=== PATIENT | male | born 1980 | race Caucasian/White ===

== ENCOUNTER → 2018-06-24 10:08 | Outpatient (CLI) | payer OTHER, MEDICAID, SELFPAY ==
--- NOTE | 2018-06-24 10:28 | DI.RAD.S_ITS ---
PROCEDURE: XR SHOULDER RT MIN 2V INDICATIONS: Right shoulder pain after fall TECHNIQUE: 3 views of the shoulder were acquired. COMPARISON: [facility], , SHOULDER MINIMUM 2VIEW RIGHT, 02/06/2011, 21:13. FINDINGS: Bones: No fractures or dislocations. No suspicious bony lesions. Mild acromioclavicular joint degeneration. Visualized ribs appear intact. Soft tissues: No suspicious soft tissue calcifications. IMPRESSION: No fracture or dislocation. Dictated by: Joyce Clark M.D. on 06/24/2018 at 13:07 Approved by: Joyce Clark M.D. on 06/24/2018 at 13:10
--- NOTE | 2018-06-24 10:28 | DI.RAD.S_ITS ---
PROCEDURE: XR RIBS RT MIN 3V W CXR 1V INDICATIONS: Posterior right rib pain s/p fall TECHNIQUE: 2 views of the right ribs were acquired, along with a single view chest. COMPARISON: [facility], , CHEST 2 VIEW, 10/25/2008, 19:28. FINDINGS: Surgical changes and devices: Surgical clips are present in the right upper quadrant. Bones and chest wall: No fractures or dislocations. No suspicious bony lesions. Overlying soft tissues appear unremarkable. Lungs and pleura: No pleural effusions or pneumothorax. Lungs appear clear. Mediastinum: Mediastinal contours appear normal. Heart size is normal. IMPRESSION: No displaced right rib fractures. Dictated by: Joyce Clark M.D. on 06/24/2018 at 13:05 Approved by: Joyce Clark M.D. on 06/24/2018 at 13:07
[2018-06-24 13:38] LABS: Urine N gonorrhoeae NOT DETECTED
[2018-06-24 14:56] LABS: Urine Chlamydia NOT DETECTED
[2018-06-26 14:18] LABS: RPR Screen Nonreactive (Nonreactive)
[2018-06-26 17:10] LABS: HSV 1 IgM Screen Negative (Negative); HSV 2 IgM Screen Negative (Negative)
[2018-06-26 19:34] LABS: HIV Ag/Ab, 4th Gen Nonreactive (Nonreactive)
[2018-06-28 08:47] LABS: Hepatitis A Antibody IgM NONREACTIVE (NONREACTIVE); Hepatitis Acute Panel Interp 0.05 (NONREACTIVE); Hepatitis B Core Antibody IgM NONREACTIVE (NONREACTIVE); Hepatitis B Surface Antigen NONREACTIVE (NONREACTIVE); Hepatitis C Antibody NONREACTIVE
== END ==
PROVIDERS: PCP Family Medicine; Visit Provider Registered Nurse
DX: Z20.2 Contact with and (suspected) exposure to infections with a predominantly sexual mode of transmission (principal); M25.511 Pain in right shoulder; W19.XXXA Unspecified fall, initial encounter; R07.81 Pleurodynia
CPT/HCPCS: 36415; 71101; 73030; 80074; 86592; 86694; 86703; 87491; 87591

== ENCOUNTER 2018-08-26 14:36 | Emergency (ER) | payer OTHER, MEDICAID, SELFPAY ==
[2018-08-26 14:43] VITALS: BP 170/107; PULSE 91; RESP 15; TEMP 36.2; O2SAT 97; BMI 36.1
--- NOTE | 2018-08-26 14:50 | DI.RAD.S_ITS ---
PROCEDURE: XR FOREARM RT 2V INDICATIONS: pain after pinching arm between engine/firewall TECHNIQUE: 2 views of the forearm were acquired. COMPARISON: None. FINDINGS: Bones: No fractures or dislocations. No suspicious bony lesions. Soft tissues: No suspicious soft tissue calcifications or masses. IMPRESSION: No visualized acute fracture or dislocation. However, if clinical concern and/or pain persist, short interval imaging followup in 7-10 days is recommended, as occult injury cannot be definitively excluded. Dictated by: Evangelina Corbett M.D. on 08/26/2018 at 15:20 Approved by: Evangelina Corbett M.D. on 08/26/2018 at 15:22
--- NOTE | 2018-08-26 15:33 | ED_ITS ---
HPI - Extremity Injury (Upper) <BERONICA Wan-BC - Last Filed: 08/26/18 17:15> General Chief Complaint: Extremity Injury, Upper Stated Complaint: Right forearm injury from working on an engine Time Seen by Provider: 08/26/18 15:08 Source: patient Mode of arrival: ambulatory Limitations: no limitations History of Present Illness HPI narrative: The patient is a 38-year-old male who presents with a chief complaint of right arm pain and bruising. he is a current smoker and has history of back pain. he takes daily Percocet twice a day and is on a pain contract. He states this happened several days ago. He denies any numbness or tingling of his right hand. He has been taking [id number] medication and aggressively icing his forearm. He is concerned about a fracture. Related Data Home Medications Medication Instructions Recorded Confirmed oxycodone-acetaminophen [Percocet] 1 tab PO BID PRN 08/26/18 08/26/18 Previous Rx's Medication Instructions Recorded meloxicam 15 mg PO QDAY #30 tab 01/27/18 amitriptyline 25 mg tablet 25 mg PO BEDTIME #30 tab 03/25/18 bupropion HCl XL 450 mg 24 hr 450 mg PO DAILY #90 tab 05/05/18 tablet, extended release cyclobenzaprine 10 mg tablet 10 mg PO TID PRN #20 tab 06/30/18 Allergies Allergy/AdvReac Type Severity Reaction Status Date / Time neomycin Allergy Unknown Verified 08/26/18 14:43 polymyxin B Allergy Unknown Verified 08/26/18 14:43 pain contract Allergy Unknown Uncoded 07/05/18 09:19 Review of Systems <MARQUISE Wan - Last Filed: 08/26/18 17:15> Review of Systems GENERAL: Denies chills, fatigue, malaise, fever, sweats. HEENT: Denies sinus pain, ear pain, sore throat, difficulty swallowing, dizziness. RESPIRATORY: Denies dyspnea, cough, wheezing, hemoptysis, sputum. CARDIOVASCULAR: Denies chest pain, palpitations, orthopnea, edema, GASTROINTESTINAL: Denies nausea, vomiting, abdominal pain, diarrhea, constipation, melena. : Denies dysuria, frequency, incontinence, hematuria, urinary retention. MUSCULOSKELETAL: HPI SKIN: See HPI NEUROLOGIC: Denies weakness, headache, numbness, change in speech, confusion, seizures, incoordination. PSYCHIATRIC: No concerning psychosocial issues. 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) Surgical History History of varicose vein stripping (Resolved ~2015) History of vasectomy (~2009) Status post arthroscopy (~2012) Status post knee surgery (~2011) Status post knee surgery (~2009) Family History Father Diabetes mellitus Obesity Mother Age: 60 Obesity Social History Smoking Status: Former smoker alcohol intake: current (very rarely) substance use type: marijuana (on occasion) Family History Father Diabetes mellitus Obesity Mother Age: 60 Obesity Social History Smoking Status: Former smoker alcohol intake: current (very rarely) substance use type: marijuana (on occasion) Exam <BISI Wan - Last Filed: 08/26/18 17:15> Narrative Exam Narrative: GENERAL: This is a well-nourished, well-developed patient, sitting on stretcher in no acute distress HEAD: Atraumatic. Normocephalic. No temporal or scalp tenderness. EYES: Pupils equal round and reactive. Extraocular motions intact. No scleral icterus. No injection or drainage. ENT: Nose without bleeding, purulent drainage or septal hematoma. Throat without erythema, tonsillar hypertrophy or exudate. Uvula midline. Airway patent. NECK: Trachea midline. No JVD or lymphadenopathy. Supple, nontender, no meningeal signs. CARDIOVASCULAR: Regular rate and rhythm RESPIRATORY: no cough. No increased respiratory effort. EXTREMITIES: Pain to palpation of right forearm. Diffuse tenderness noted. Soft to palpation. Positive radial pulse right hand. Capillary refill less than 2 seconds all fingers right hand. Patient is able to pronate and supinate right forearm. Range of motion of wrist and intact. right hand is warm. BACK: Nontender without deformity or crepitance. No flank tenderness. NEURO: AOx3. SKIN: Diffuse ecchymosis noted anterior aspect of right forearm. No laceration or abrasions noted. Initial Vital Signs Initial Vital Signs: Vital Signs Temperature 97.2 F L 08/26/18 14:43 Pulse Rate 91 H 08/26/18 14:43 Respiratory Rate 15 08/26/18 14:43 Blood Pressure 170/107 H 08/26/18 14:43 Pulse Oximetry 97 08/26/18 14:43 <Luz Maria Nieves DO - Last Filed: 08/29/18 19:07> Initial Vital Signs Initial Vital Signs: Vital Signs Temperature 97.2 F L 08/26/18 14:43 Pulse Rate 91 H 08/26/18 14:43 Respiratory Rate 15 08/26/18 14:43 Blood Pressure 170/107 H 08/26/18 14:43 Pulse Oximetry 97 08/26/18 14:43 Course <BERONICA Wan-RODNEY - Last Filed: 08/26/18 17:15> Orders Ordered: Discontinued Medications Ketorolac Tromethamine (Toradol) 30 mg IM NOW ONE Stop: 08/26/18 15:34 Last Admin: 08/26/18 15:39 Dose: 30 mg Vital Signs - 8 hr 08/26/18 14:43 08/26/18 16:28 Temperature 97.2 F L Pulse Rate 91 H 81 Respiratory Rate 15 15 Blood Pressure 170/107 H Blood Pressure [Left Arm] 147/98 H Pulse Oximetry 97 98 <DO Armando Castro Last Filed: 08/29/18 19:07> Orders Ordered: Discontinued Medications Ketorolac Tromethamine (Toradol) 30 mg IM NOW ONE Stop: 08/26/18 15:34 Last Admin: 08/26/18 15:39 Dose: 30 mg Vital Signs - 8 hr 08/26/18 14:43 08/26/18 16:28 Temperature 97.2 F L Pulse Rate 91 H 81 Respiratory Rate 15 15 Blood Pressure 170/107 H Blood Pressure [Left Arm] 147/98 H Pulse Oximetry 97 98 MDM - Extremity Injury (Upper) <BERONICA Wan-BC - Last Filed: 08/26/18 17:15> Imaging Data arm xray : Radiologist's impression: [address] [address] XRay Report Signed Patient: Yovani Edmond LMR#: [id number] : 1980Acct:[id number] Age/Sex: 38 / MDate of Service: 08/26/18 Loc: ED Accession Number: [id number] Procedure: XR forearm RT 2V Ordering Provider: Luz Maria Nieves D.O. PROCEDURE: XR FOREARM RT 2V INDICATIONS: pain after pinching arm between engine/firewall TECHNIQUE: 2 views of the forearm were acquired. COMPARISON: None. FINDINGS: Bones: No fractures or dislocations. No suspicious bony lesions. Soft tissues: No suspicious soft tissue calcifications or masses. IMPRESSION: No visualized acute fracture or dislocation. However, if clinical concern and/or pain persist, short interval imaging followup in 7-10 days is recommended, as occult injury cannot be definitively excluded. Dictated by: Evangelina Corbett M.D. on 08/26/2018 at 15:20 Approved by: Evangelina Corbett M.D. on 08/26/2018 at 15:22 [facility] Narrative Medical decision making narrative: The patient is a 38-year-old male who presents with chief complaint of right arm pain. Had negative x-rays. He is neurovascularly intact. he does have range of motion. I discussed at length using rest ice compression elevation. He is given Toradol in the emergency department I gave him a prescription for 2 days of Toradol. Had a pancho discussion to not combine this with any other NSAIDs such as ibuprofen or Aleve. Patient states understanding. Discussed return precautions of chest pain, shortness of breath, decreased circulation or acute concerns. Patient has no questions or concerns upon discharge. Discharge Plan Departure Patient Disposition: Home Clinical Impression: Arm pain, right Contusion of arm, right Qualifiers: Encounter type: initial encounter Qualified Code(s): S40.021A - Contusion of right upper arm, initial encounter Discharge Date/Time: 08/26/18 16:45 Interventions: ED Discharge Assessment Last Done: 08/26/18 16:44 Instructions: DI for Contusion, DI for Arm Pain Activity Restrictions/Additional Instructions: Your x-ray shows no fracture. Please continue rest ice compression elevation as well as [id number] medications as needed and able. I gave her prescript ion for 2 days of Toradol. This is nonnarcotic. Do not take any other NSAIDs with it such as Mobic ibuprofen or Aleve. Follow up with primary care physician in the next few days. Please come back to the emergency department if you have any acute concerns such as lack of circulation to your hand, chest pain or concern of heart attack or stroke Prescriptions: No Action meloxicam 15 mg tablet 15 mg PO QDAY Qty: 30 RF: 5 bupropion HCl 450 mg tablet extended release 24 hr 450 mg PO DAILY Qty: 90 RF: 3 amitriptyline 25 mg tablet 25 mg PO BEDTIME Qty: 30 RF: 1 cyclobenzaprine 10 mg tablet 10 mg PO TID PRN (Reason: muscle spasm) Qty: 20 RF: 0 oxycodone-acetaminophen [Percocet] 7.5-325 mg tablet 1 tab PO BID PRN (Reason: pain) RF: 0 Referrals: Megan Flores DO [Primary Care Provider] - <Luz Maria Nieves DO - Last Filed: 08/29/18 19:07> Cosign ED Attending Pallaviature Attestation: I was immediately available in the department for consultation. Documentation has been reviewed. I agree with assessment and plan.
[2018-08-26] MEDS: KETOROLAC 60 MG/2 ML VIAL 30 MG IM (15:39)
[2018-08-26 16:28] VITALS: BP 147/98; PULSE 81; RESP 15; O2SAT 98
== END 2018-08-26 16:45 | disposition home or self-care (01) ==
PROVIDERS: Emergency Provider Nurse Practitioner Family; PCP Family Medicine
DX: S40.021A Contusion of right upper arm, initial encounter (principal)
CPT/HCPCS: 73090; 96372; 99282; 99283; J1885

== ENCOUNTER → 2019-03-21 19:11 | Outpatient (ROUT) | payer OTHER, MEDICAID, SELFPAY | PROVIDERS: PCP Family Medicine; Visit Provider Family Medicine | DX: Z02.83 Encounter for blood-alcohol and blood-drug test (principal) | CPT/HCPCS: 80307 ==

== ENCOUNTER → 2019-09-28 15:25 | Outpatient (CLI) | payer OTHER, MEDICAID, SELFPAY ==
[2019-09-28 17:00] LABS: Ur Creatinine Normal (Normal); Ur Specific Gravity Normal (Normal); Urine Tetrahydrocannabinol Positive (Negative); Urine pH Normal (Normal)
[2019-09-28 17:01] LABS: UR Morphine/Opiate cutoff 300 Positive (Negative); Urine Amphetamines Negative (Negative); Urine Barbiturates Negative (Negative); Urine Benzodiazepines Negative (Negative); Urine Cocaine Negative (Negative); Urine MDMA Negative (Negative); Urine Methadone Negative (Negative); Urine Methamphetamines Negative (Negative); Urine Oxycodone Positive (Negative); Urine Phencyclidine Negative (Negative); Urine Tricyclic Antidepressant Negative (Negative)
== END ==
PROVIDERS: PCP Family Medicine; Referring Provider Family Medicine; Visit Provider Family Medicine
DX: Z79.899 Other long term (current) drug therapy (principal); R82.5 Elevated urine levels of drugs, medicaments and biological substances
CPT/HCPCS: 80305; 80361

== ENCOUNTER → 2019-12-30 09:48 | Outpatient (CLI) | payer OTHER, MEDICAID, SELFPAY ==
[2019-12-30 11:34] LABS: Alanine Aminotransferase 29 IU/L (<50); Albumin 4.7 g/dL (3.5-5.0); Albumin Globulin Ratio 1.5 (1.0-2.8); Alkaline Phosphatase 64 U/L (38-126); Aspartate Aminotransferase 22 IU/L (17-59); BUN Creatinine Ratio 18.1 (6-22); Bilirubin Total 0.5 mg/dL (0.2-1.3); Blood Urea Nitrogen 15 mg/dL (9-20); Calcium 9.9 mg/dL (8.4-10.2); Carbon Dioxide 29 mmol/L (22-32); Chloride 101 mmol/L (98-107); Cholesterol 199 mg/dL (140-199); Estimated Glomerular Filt Rate > 60.0 mL/min (>60); Globulin 3.1 g/dL (1.7-4.1); Glucose 107 mg/dL (70-100); HDL Cholesterol 61 mg/dL (40-60); HEMOLYSIS < 15 (0-50); LDL Cholesterol Calculated 100 mg/dL (<100); Potassium 5.1 mmol/L (3.4-5.1); Sodium 138 mmol/L (137-145); Total Protein 7.8 g/dL (6.3-8.2); Triglycerides 190 mg/dL (35-150)
[2019-12-30 11:56] LABS: TSH w/ Reflex to FT4 1.73 uIU/mL (0.47-4.68)
== END ==
PROVIDERS: PCP Family Medicine; Referring Provider Family Medicine; Visit Provider Family Medicine
DX: E66.9 Obesity, unspecified (principal); F32.4 Major depressive disorder, single episode, in partial remission; F33.1 Major depressive disorder, recurrent, moderate
CPT/HCPCS: 36415; 80053; 80061; 84443

== ENCOUNTER → 2020-04-23 16:15 | Outpatient (CLI) | payer OTHER, MEDICAID, SELFPAY ==
[2020-04-23 17:07] LABS: UR Morphine/Opiate cutoff 300 Negative (Negative); Ur Creatinine Normal (Normal); Ur Specific Gravity Normal (Normal); Urine Amphetamines Negative (Negative); Urine Barbiturates Negative (Negative); Urine Benzodiazepines Negative (Negative); Urine Cocaine Negative (Negative); Urine MDMA Negative (Negative); Urine Methadone Negative (Negative); Urine Methamphetamines Negative (Negative); Urine Oxycodone Positive (Negative); Urine Phencyclidine Negative (Negative); Urine Tetrahydrocannabinol Positive (Negative); Urine Tricyclic Antidepressant Negative (Negative); Urine pH Normal (Normal)
== END ==
PROVIDERS: Family Provider Family Medicine; PCP Family Medicine; Referring Provider Family Medicine; Visit Provider Family Medicine
DX: M54.9 Dorsalgia, unspecified (principal); Z79.899 Other long term (current) drug therapy
CPT/HCPCS: 80305

== ENCOUNTER 2020-05-21 15:15 | Outpatient (RCR) | payer OTHER, MEDICAID, SELFPAY ==
[2020-04-25 10:34] VITALS: BP 170/105
--- NOTE | 2020-04-25 17:49 | PT.OIE ---
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) Tobacco use Past Surgical History (Last Reviewed 07/13/19 @ 10:16 by Jim Sesay DO) History of varicose vein stripping (~2015) History of vasectomy (~2009) Status post arthroscopy (~2012) Status post knee surgery (~2011) Status post knee surgery (~2009) Visit Care Team Role Provider Type Megan Flores DO Attending Provider Physician Family Provider Primary Care Provider Referring Provider Specialty: [facility] Practice Address: [address] [place] [address], [facility] [address], [place], [facility] Email: [email or web address] Therapy Initial Evaluation PT-OP-A Visit Information Start: 04/18/20 09:27 Freq: Status: Active Protocol: Document 04/25/20 10:34 AW (Rec: 04/25/20 11:21 AW [id number]) Out-Patient Physical Therapy Visit Information Visit Information Visit Type Initial Evaluation Visit Start Time 10:35 Visit Stop Time 11:15 Total Visit Minutes 40 Visit Number 1/ Number of HAZARDOUS MATERIALS HANDLER Visits 0 Evaluation Information Evaluation Date 04/25/20 PT-OP-B Current Condition Start: 04/18/20 09:27 Freq: Status: Active Protocol: Document 04/25/20 10:34 AW (Rec: 04/25/20 11:21 AW [id number]) Current Condition History of Current Condition Onset Date several years Current Complaints low back pain History of Current Condition Yovani reports low back pain which has been mostly stable for years. Some days are worse than others. There are days when I can't get out of bed and I might end up on the floor and not be able to get up. 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 He is on his feet for long periods of time . He works [id number] and sleeps during days. He is currently sleeping ~6-7 hours daily with trazadone and reports good sleep hygiene with a fairly regular sleep schedule. Since pt sleeps 0800 -1500, later afternoon appointments would work best for him. Pt reports back issues when he was younger but that they resolved. Current pain does not improve. Pt has low back pain (right more affected than left) and pain in right buttock and posterior thigh. Radiating pain does not usually extend past his knee. Prior Treatments and Tests - trazadone for sleep - MRI imaging a few years ago . Records unavailable - Pain management with Dr. Sesay - PT here 4 years ago Future Testing and Treatments Planned MRI in future depending on PT Prior Functional Status Baseline Function- ADL's Independent Baseline Function- Mobility Independent Baseline Function- Gait Could walk as far as needed without pain. 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 Current Functional Impairments (Reported) Functional Limitations- Mobility/Gait Walking around loop at [employer] ~4 times but must reduce speed on last laps. Functional Limitations- Work/School Pain during regular work. Difficulty climbing ladders. Difficulty lifting. Personal Factors Other Personal Factors That May Effect + positive experience with Therapy/Recovery past PT + positive attitude toward movement + low risk for catastrophization - works long hours in awkward positions/tight spaces PT-OP-C Subjective Start: 04/18/20 09:27 Freq: Status: Active Protocol: Document 04/25/20 10:34 AW (Rec: 04/25/20 17:47 AW [email or web address]) Patient Questionnaires Oswestry Low Back Index Oswestry Score 56 Oswestry Impairment 40 to 59% Impaired (Score 40- 59) Other Questionnaire Name and Score [facility] Back - 6/9 total; 2/5 subscore OP-PT Pain Assessment Pain Assessment Grid Paper Pain Assessment Grid Completed Yes Comments Pain Comments low back - 7/10; right posterior leg - 5/10 PT-OP-F Manual Assessment Start: 04/18/20 09:27 Freq: Status: Active Protocol: Document 04/25/20 10:34 AW (Rec: 04/25/20 17:47 AW [email or web address]) Manual Assessments Soft Tissue Assessment Soft Tissue Mobility Assessment increased density of lumbar paraspinals especially L3-S1 with right more affected than left Joint Mobility Assessment Joint Mobility Assessment lumbar P/A's limited especially L3-S1 PT-OP-G Mobility & Gait Start: 04/18/20 09:27 Freq: Status: Active Protocol: Document 04/25/20 10:34 AW (Rec: 04/25/20 17:47 AW [email or web address]) OP Gait Assessment Gait Gait Assistance Required: Independent Distance (Feet) 100 Assistive Devices Assistive Device None Orthotic/Prosthetic Devices or Brace: No Gait Deviations General Gait Pattern Decreased Stride Length, Decreased Feet Clearance,Wide Based Gait Factors Limiting Gait Function Factors Limiting Gait Function Decreased Strength,Limited Range of Motion,Pain Comments Gait Comments Pt ambulates with excessive turnout of bilateral feet, likely originating with externally rotated hips/ limited hip IR ROM. PT-OP-H Neuro Start: 04/18/20 09:27 Freq: Status: Active Protocol: Document 04/25/20 10:34 AW (Rec: 04/25/20 17:47 AW [email or web address]) Sensation Evaluation Gross Sensation Gross Sensation WNL Deep Tendon Reflex & Clonus Assessment Deep Tendon Reflex Bilateral Achilles Deep Tendon Reflex 1+ Diminished Bilateral Patellar Deep Tendon Reflex 1+ Diminished Vital Signs Blood Pressure Sitting Blood Pressure (90/60-120/80 mmHg) 170/105 H Blood Pressure Source Manual Cuff,Right Upper Extremity Comments Vital Signs Comments Pulse regular. Pt states I just chugged a Red Bull and I don't usually drink caffeine. PT-OP-J Posture/Palpation/Skin Start: 04/18/20 09:27 Freq: Status: Active Protocol: Document 04/25/20 10:34 AW (Rec: 04/25/20 17:47 AW [email or web address]) Posture Evaluation Position Standing Evaluation View Lateral Head/C-Spine Posture Forward Head L-Spine Posture Flattened,Decreased Lordosis Arm Posture (L) Internally Rotated,(R) Internally Rotated Pelvis Posture Posterior Tilted Weight Distribution Weight Shifted Left,Decreased Wt.Bear on (R) PT-OP-K Range of Motion Start: 04/18/20 09:27 Freq: Status: Active Protocol: Document 04/25/20 10:34 AW (Rec: 04/25/20 17:47 AW [email or web address]) Lumbar Spine Range of Motion Lumbar Spine Active Degrees Testing Position Standing Flexion 60 Extension 8 ROM Limitations Soft Tissue Tightness,Pain Comments Hinge noted at L1 with all lumbar movements. Right lateral flexion and left rotation are painful. Pt denies pain with lumbar flexion but has difficulty extending to neutral, is noted to use hands on thighs on initial attempt. Hip Goniometric Range of Motion Hip Active Hip ROM WFL No Hip ROM Limitations Comments Hip flexion limited by soft tissue/habitus. IR limited bilaterally. Knee Goniometric Range of Motion Knee Right Knee ROM WFL Yes Comments Bilateral knee ROM WNL PT-OP-L Special Tests Start: 04/18/20 09:27 Freq: Status: Active Protocol: Document 04/25/20 10:34 AW (Rec: 04/25/20 17:47 AW [email or web address]) Special Tests Lumbar Spine Special Tests Straight Leg Raise Test Results positive bilaterally Comments active SLR positive; improved symptoms with compression applied across pelv Manual Traction Comments relieveing Hip Special Tests Scour Test Test Results negative bilaterally Neural Special Tests- Lower Body Sciatic Nerve Tension Test Results slump positive RLE; mildly positive LLE PT-OP-M Strength Start: 04/18/20 09:27 Freq: Status: Active Protocol: Document 04/25/20 10:34 AW (Rec: 04/25/20 17:47 AW [email or web address]) Hip Strength Hip Manual Muscle Testing Left Flexion (L2) 4+ Good+ Extension (S1) 4- Good- Abduction 4- Good- External Rotation 4 Good Internal Rotation 4 Good Comments Right hip tests same as left Knee Strength Knee Manual Muscle Testing Left Flexion (S2) 4+ Good+ Extension (L3) 5 Normal Comments Right knee tests same as left Ankle/Foot Strength Ankle and Foot Manual Muscle Testing Left Dorsiflexion (L4) 5 Normal Plantarflexion (S1) 5 Normal Inversion 4+ Good+ Eversion (S1) 4+ Good+ Comments PF tested in standing. No unilateral deficit. PT-OP-Q Treatments Start: 04/18/20 09:27 Freq: Status: Active Protocol: Document 04/25/20 10:34 AW (Rec: 04/25/20 17:47 AW [email or web address]) Therapeutic Exercises Supine Exercises 1 Supine Exercise Name bent knee fall out Side bilateral Reps/Minutes 3 min Comments cued TrA draw down and focus on breathing PT-OP-T Assessment and Plan Start: 04/18/20 09:27 Freq: Status: Active Protocol: Document 04/25/20 10:34 AW (Rec: 04/25/20 17:47 AW [email or web address]) Physical Therapy Assessment Rehab Potential Rehabilitation Potential Good Evaluation Complexity Number of Personal Factors/Comorbidities 1-2 Number of Body Systems Impaired 1-2 Clinical Presentation at Evaluation Stable Impairments Impairments Activity Tolerance,Functional Activities,Functional Mobility ,Gait,Pain,Posture,ROM,Soft Tissue Mobility,Strength Goals 4 Impairment increased tone lumbar paraspinals Assisted Goal (LTG) Pt will demonstrate reduction in tone at lumbar paraspinals for improved activity tolerance LTG Duration 10 weeks - 07/04/20 3 Impairment ROM Short Term Goal (STG) Pt will improve lateral flexion from 3 above knee with pain to 1.5 above knee without pain bilaterally STG Duration 5 weeks - 05/30/20 2 Impairment pain impacting daily function Plasterer Rough Goal (LTG) Pt will score 35% or less on Modified Oswestry to demonstrate improvement in daily activities LTG Duration 10 weeks - 07/04/20 1 Impairment Pt has difficulty performing work duties Short Term Goal (STG) Pt will be able to tolerate standing 1 hour without increase in baseline pain. STG Duration 5 weeks - 05/30/20 Plasterer Rough Goal (LTG) Pt will be able to lift 25 pounds without increase in baseline pain LTG Duration 10 weeks - 07/04/20 Assessment Summary Assessment Yovani is a 39 yo man seen for evaluation in outpatient PT with complaints of low back pain and right posterior leg pain lasting several years. Pt denies trauma or injury, stating his pain worsened insidiously. Lumbar range of motion and hip strength are impaired. Decreased lumbar lordosis is affecting gait and pain irritability. 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 Pt will benefit from skilled physical therapy to address range of motion, posture, and strength deficits in order to improve pt's ability to participate in work and recreational activities with reduced pain and improved quality of life. Physical Therapy Plan Frequency and Duration Frequency of Treatment 2x/Week Duration of Treatment 10 weeks Plan of Care Start Date 04/25/20 Plan of Care End Date 07/04/20 Therapeutic Interventions Therapeutic Interventions Balance Training,Gait Training ,Home Exercise Program,Joint Mobilizations,Manual Therapy, Neuromuscular Re-education, Patient/Caregiver Education, Self-Care/Home Management,Soft Tissue Mobilization,Taping, Therapeutic Activities, Therapeutic Exercises Modalities Cold Pack/Ice Massage,Hot Packs Next Visit Focus/Plan Next Note Type Treatment Note Next Visit Plan assess response to TrA awareness and bent-knee fallout. progress TrA. initiate manual therapy for tone in lumbar paraspinals and lower lumbar mobility
--- NOTE | 2020-04-25 17:49 | PT.OPPOC ---
Physical, Occupational & Speech Therapy At [facility] Current Diagnoses Dorsalgia, unspecified (04/25/20) Abnormal posture (04/25/20) Visit Care Team Role Provider Type Megan Flores DO Attending Provider Physician Family Provider Primary Care Provider Referring Provider Specialty: Family Practice Address: [address] [place] [address], [address], [facility] Email: [email or web address] Plan Of Care PT-OP-T Assessment and Plan Start: 04/18/20 09:27 Freq: Status: Active Protocol: Document 04/25/20 10:34 AW (Rec: 04/25/20 17:47 AW [email or web address]) Physical Therapy Assessment Rehab Potential Rehabilitation Potential Good Evaluation Complexity Number of Personal Factors/Comorbidities 1-2 Number of Body Systems Impaired 1-2 Clinical Presentation at Evaluation Stable Impairments Impairments Activity Tolerance,Functional Activities,Functional Mobility ,Gait,Pain,Posture,ROM,Soft Tissue Mobility,Strength Goals 4 Impairment increased tone lumbar paraspinals Senior Care Goal (LTG) Pt will demonstrate reduction in tone at lumbar paraspinals for improved activity tolerance LTG Duration 10 weeks - 07/04/20 3 Impairment ROM Short Term Goal (STG) Pt will improve lateral flexion from 3 above knee with pain to 1.5 above knee without pain bilaterally STG Duration 5 weeks - 05/30/20 2 Impairment pain impacting daily function Brilliandeer Looper Goal (LTG) Pt will score 35% or less on Modified Oswestry to demonstrate improvement in daily activities LTG Duration 10 weeks - 07/04/20 1 Impairment Pt has difficulty performing work duties Short Term Goal (STG) Pt will be able to tolerate standing 1 hour without increase in baseline pain. STG Duration 5 weeks - 05/30/20 Brilliandeer Looper Goal (LTG) Pt will be able to lift 25 pounds without increase in baseline pain LTG Duration 10 weeks - 07/04/20 Assessment Summary Assessment Yovani is a 39 yo man seen for evaluation in outpatient PT with complaints of low back pain and right posterior leg pain lasting several years. Pt denies trauma or injury, stating his pain worsened insidiously. Lumbar range of motion and hip strength are impaired. Decreased lumbar lordosis is affecting gait and pain irritability. 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 Pt will benefit from skilled physical therapy to address range of motion, posture, and strength deficits in order to improve pt's ability to participate in work and recreational activities with reduced pain and improved quality of life. Physical Therapy Plan Frequency and Duration Frequency of Treatment 2x/Week Duration of Treatment 10 weeks Plan of Care Start Date 04/25/20 Plan of Care End Date 07/04/20 Therapeutic Interventions Therapeutic Interventions Balance Training,Gait Training ,Home Exercise Program,Joint Mobilizations,Manual Therapy, Neuromuscular Re-education, Patient/Caregiver Education, Self-Care/Home Management,Soft Tissue Mobilization,Taping, Therapeutic Activities, Therapeutic Exercises Modalities Cold Pack/Ice Massage,Hot Packs Next Visit Focus/Plan Next Note Type Treatment Note Next Visit Plan assess response to TrA awareness and bent-knee fallout. progress TrA. initiate manual therapy for tone in lumbar paraspinals and lower lumbar mobility Plan of Care Dates Plan of Care Start Date 04/25/20 Plan of Care End Date 07/04/20 Electronically Signed by: Julianne Li, PT 04/25/20 [id number] Please Sign and Return: I have reviewed this Plan of Care and certify that the skilled therapy services above are required to meet the patient?s needs. Physician Signature Date Printed Name and Credentials Clinical Instructor Signature Printed Name and Credentials
--- NOTE | 2020-04-27 15:00 | PT-OP ANOTE ---
Attempted to call pt for reminder of next appt and no show policy but voicemail stated it was a phone number for Yennifer _. Did not leave message.
--- NOTE | 2020-05-02 14:33 | PT-OP ANOTE ---
Pt cancelled same day due to high fever.
--- NOTE | 2020-05-14 16:36 | PT.OTN ---
Current Diagnoses Dorsalgia, unspecified (05/14/20) Abnormal posture (05/14/20) Physical Therapy Treatment Note PT-OP-A Visit Information Start: 04/18/20 09:27 Freq: Status: Active Protocol: Document 05/14/20 16:11 MA (Rec: 05/14/20 16:36 MA [email or web address]) Out-Patient Physical Therapy Visit Information Visit Information Visit Type Treatment Note Visit Start Time 14:30 Visit Stop Time 15:13 Total Visit Minutes 43 Visit Number 2/ Number of CATALYST OPERATOR GASOLINE Visits 1 PT-OP-B Current Condition Start: 04/18/20 09:27 Freq: Status: Active Protocol: Document 04/25/20 10:34 AW (Rec: 04/25/20 11:21 AW [email or web address]) Current Condition History of Current Condition Onset Date several years Current Complaints low back pain History of Current Condition Yovani reports low back pain which has been mostly stable for years. Some days are worse than others. There are days when I can't get out of bed and I might end up on the floor and not be able to get up. 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 He is on his feet for long periods of time . He works [id number] and sleeps during days. He is currently sleeping ~6-7 hours daily with trazadone and reports good sleep hygiene with a fairly regular sleep schedule. Since pt sleeps 0800 -1500, later afternoon appointments would work best for him. Pt reports back issues when he was younger but that they resolved. Current pain does not improve. Pt has low back pain (right more affected than left) and pain in right buttock and posterior thigh. Radiating pain does not usually extend past his knee. Prior Treatments and Tests - trazadone for sleep - MRI imaging a few years ago . Records unavailable - Pain management with Dr. Sesay - PT here 4 years ago Future Testing and Treatments Planned MRI in future depending on PT Prior Functional Status Baseline Function- ADL's Independent Baseline Function- Mobility Independent Baseline Function- Gait Could walk as far as needed without pain. 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 Current Functional Impairments (Reported) Functional Limitations- Mobility/Gait Walking around loop at [employer] ~4 times but must reduce speed on last laps. Functional Limitations- Work/School Pain during regular work. Difficulty climbing ladders. Difficulty lifting. Personal Factors Other Personal Factors That May Effect + positive experience with Therapy/Recovery past PT + positive attitude toward movement + low risk for catastrophization - works long hours in awkward positions/tight spaces PT-OP-C Subjective Start: 04/18/20 09:27 Freq: Status: Active Protocol: Document 05/14/20 16:11 MA (Rec: 05/14/20 16:36 MA [email or web address]) OP-PT Subjective Patient Comments Patient Comments Pt has been doing his knee fall out exercise with no increase in pain. He would like to find more ab exercises he can do that don't hurt his back and are not just sit ups . PT-OP-F Manual Assessment Start: 04/18/20 09:27 Freq: Status: Active Protocol: Document 04/25/20 10:34 AW (Rec: 04/25/20 17:47 AW [email or web address]) Manual Assessments Soft Tissue Assessment Soft Tissue Mobility Assessment increased density of lumbar paraspinals especially L3-S1 with right more affected than left Joint Mobility Assessment Joint Mobility Assessment lumbar P/A's limited especially L3-S1 PT-OP-G Mobility & Gait Start: 04/18/20 09:27 Freq: Status: Active Protocol: Document 04/25/20 10:34 AW (Rec: 04/25/20 17:47 AW [email or web address]) OP Gait Assessment Gait Gait Assistance Required: Independent Distance (Feet) 100 Assistive Devices Assistive Device None Orthotic/Prosthetic Devices or Brace: No Gait Deviations General Gait Pattern Decreased Stride Length, Decreased Feet Clearance,Wide Based Gait Factors Limiting Gait Function Factors Limiting Gait Function Decreased Strength,Limited Range of Motion,Pain Comments Gait Comments Pt ambulates with excessive turnout of bilateral feet, likely originating with externally rotated hips/ limited hip IR ROM. PT-OP-H Neuro Start: 04/18/20 09:27 Freq: Status: Active Protocol: Document 04/25/20 10:34 AW (Rec: 04/25/20 17:47 AW [email or web address]) Sensation Evaluation Gross Sensation Gross Sensation WNL Deep Tendon Reflex & Clonus Assessment Deep Tendon Reflex Bilateral Achilles Deep Tendon Reflex 1+ Diminished Bilateral Patellar Deep Tendon Reflex 1+ Diminished Vital Signs Blood Pressure Sitting Blood Pressure (90/60-120/80 mmHg) 170/105 H Blood Pressure Source Manual Cuff,Right Upper Extremity Comments Vital Signs Comments Pulse regular. Pt states I just chugged a Red Bull and I don't usually drink caffeine. PT-OP-J Posture/Palpation/Skin Start: 04/18/20 09:27 Freq: Status: Active Protocol: Document 04/25/20 10:34 AW (Rec: 04/25/20 17:47 AW [email or web address]) Posture Evaluation Position Standing Evaluation View Lateral Head/C-Spine Posture Forward Head L-Spine Posture Flattened,Decreased Lordosis Arm Posture (L) Internally Rotated,(R) Internally Rotated Pelvis Posture Posterior Tilted Weight Distribution Weight Shifted Left,Decreased Wt.Bear on (R) PT-OP-K Range of Motion Start: 04/18/20 09:27 Freq: Status: Active Protocol: Document 04/25/20 10:34 AW (Rec: 04/25/20 17:47 AW [email or web address]) Lumbar Spine Range of Motion Lumbar Spine Active Degrees Testing Position Standing Flexion 60 Extension 8 ROM Limitations Soft Tissue Tightness,Pain Comments Hinge noted at L1 with all lumbar movements. Right lateral flexion and left rotation are painful. Pt denies pain with lumbar flexion but has difficulty extending to neutral, is noted to use hands on thighs on initial attempt. Hip Goniometric Range of Motion Hip Active Hip ROM WFL No Hip ROM Limitations Comments Hip flexion limited by soft tissue/habitus. IR limited bilaterally. Knee Goniometric Range of Motion Knee Right Knee ROM WFL Yes Comments Bilateral knee ROM WNL PT-OP-L Special Tests Start: 04/18/20 09:27 Freq: Status: Active Protocol: Document 04/25/20 10:34 AW (Rec: 04/25/20 17:47 AW [email or web address]) Special Tests Lumbar Spine Special Tests Straight Leg Raise Test Results positive bilaterally Comments active SLR positive; improved symptoms with compression applied across pelv Manual Traction Comments relieveing Hip Special Tests Scour Test Test Results negative bilaterally Neural Special Tests- Lower Body Sciatic Nerve Tension Test Results slump positive RLE; mildly positive LLE PT-OP-M Strength Start: 04/18/20 09:27 Freq: Status: Active Protocol: Document 04/25/20 10:34 AW (Rec: 12/16/20 17:47 AW [email or web address]) Hip Strength Hip Manual Muscle Testing Left Flexion (L2) 4+ Good+ Extension (S1) 4- Good- Abduction 4- Good- External Rotation 4 Good Internal Rotation 4 Good Comments Right hip tests same as left Knee Strength Knee Manual Muscle Testing Left Flexion (S2) 4+ Good+ Extension (L3) 5 Normal Comments Right knee tests same as left Ankle/Foot Strength Ankle and Foot Manual Muscle Testing Left Dorsiflexion (L4) 5 Normal Plantarflexion (S1) 5 Normal Inversion 4+ Good+ Eversion (S1) 4+ Good+ Comments PF tested in standing. No unilateral deficit. PT-OP-Q Treatments Start: 04/18/20 09:27 Freq: Status: Active Protocol: Document 05/14/20 16:11 MA (Rec: 05/14/20 16:36 MA [email or web address]) Therapeutic Exercises Supine Exercises LTR Supine Exercise Name cues to TrA contraction to bring knees back to neutral Side bilateral Reps/Minutes 10x holding for 10 sec marches Supine Exercise Name Cues for TrA contraction and breath control Side bilateral Reps/Minutes 6x Comments d/c due to LBP 1 Supine Exercise Name bent knee fall out Side bilateral Reps/Minutes 3 min Comments cued TrA draw down and focus on breathing Other Exercises 4-point kneeling Other Exercise Name with leg extension only; added with arm ext only to HEP Reps/Minutes 10x Comments manual and verbal cues for keeping pelvis level Plank Comments on forearms- d/c due to LBP Verna Pose Other Exercise Name Child's pose stretch Reps/Minutes 60 sec Manual Therapy Treatment Soft Tissue Mobilization paraspinals Body Location jemal paraspinals Mobilization Type Myofascial Release,Strumming, Sustained Pressure,Trigger Point Release Intensity/Depth Moderate Body Position Prone Manual Techniques Iliac Crest Scour Body Location Jemal Body Position Prone Self-Care/Home Management Treatment Education Patient Education Home Exercise Program Other Education Added LTR to HEP focusing on using the core to bring knees back to neutral to avoid LBP. Pt has been using a tennis ball at home for self-STM and will continue using it as needed. Asked pt to try 4- point kneeling exercise with single arm extension instead of leg ext at home with option to add light weight for more of a challenge. PT-OP-T Assessment and Plan Start: 04/18/20 09:27 Freq: Status: Active Protocol: Document 01/04/21 16:11 MA (Rec: 05/14/20 16:36 MA [email or web address]) Physical Therapy Assessment Goals 4 Impairment increased tone lumbar paraspinals Allocations Clerk Goal (LTG) Pt will demonstrate reduction in tone at lumbar paraspinals for improved activity tolerance LTG Duration 10 weeks - 07/04/20 3 Impairment ROM Short Term Goal (STG) Pt will improve lateral flexion from 3 above knee with pain to 1.5 above knee without pain bilaterally STG Duration 5 weeks - 05/30/20 2 Impairment pain impacting daily function Allocations Clerk Goal (LTG) Pt will score 35% or less on Modified Oswestry to demonstrate improvement in daily activities LTG Duration 10 weeks - 07/04/20 1 Impairment Pt has difficulty performing work duties Short Term Goal (STG) Pt will be able to tolerate standing 1 hour without increase in baseline pain. STG Duration 5 weeks - 05/30/20 Allocations Clerk Goal (LTG) Pt will be able to lift 25 pounds without increase in baseline pain LTG Duration 10 weeks - 07/04/20 Assessment Summary Assessment Yovani has had no pain with knee fall out exercise. Worked on lower trunk rotation for LB stretch with cues for TrA contraction when bringing knees back to neutral. Pt unable to tolerate supine marches or plank without LBP. Worked on 4-point kneeling exercise with SL extension. Pt able to complete 6 with cues for keeping pelvis level and abdominals contracted before losing contraction and feeling moderate LBP. Asked pt to try 4-point kneeling with single arm extension at home and report back if he has any increase in back pain. Told pt he can add a 2 pound weight if he has no back pain and feels it is too easy. Physical Therapy Plan Frequency and Duration Frequency of Treatment 2x/Week Duration of Treatment 10 weeks Plan of Care Start Date 04/25/20 Plan of Care End Date 07/04/20 Therapeutic Interventions Therapeutic Interventions Balance Training,Gait Training ,Home Exercise Program,Joint Mobilizations,Manual Therapy, Neuromuscular Re-education, Patient/Caregiver Education, Self-Care/Home Management,Soft Tissue Mobilization,Taping, Therapeutic Activities, Therapeutic Exercises Modalities Cold Pack/Ice Massage,Hot Packs Next Visit Focus/Plan Next Note Type Treatment Note Next Visit Plan Assess how single arm reach during 4-point kneeling and LTR exercises went at home. Add child's pose stretch to HEP. Continue STM to jemal paraspinals.
--- NOTE | 2020-05-16 15:10 | PT-OP ANOTE ---
Pt called and canceled one hour prior to appointment. If cancels or no-shows one more appointment, will discharge and cancel all future appointments per attendance policy/patient contract.
--- NOTE | 2020-05-21 16:00 | PT.OTN ---
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 Some days are worse than others. There are days when I can't get out of bed and I might end up on the floor and not be able to get up. 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 He is on his feet for long periods of time . He works [id number] and sleeps during days. He is currently sleeping ~6-7 hours daily with trazadone and reports good sleep hygiene with a fairly regular sleep schedule. Since pt sleeps 0800 -1500, later afternoon appointments would work best for him. Pt reports back issues when he was younger but that they resolved. Current pain does not improve. Pt has low back pain (right more affected than left) and pain in right buttock and posterior thigh. Radiating pain does not usually extend past his knee. Prior Treatments and Tests - trazadone for sleep - MRI imaging a few years ago . Records unavailable - Pain management with Dr. Sesay - PT here 4 years ago Future Testing and Treatments Planned MRI in future depending on PT Prior Functional Status Baseline Function- ADL's Independent Baseline Function- Mobility Independent Baseline Function- Gait Could walk as far as needed without pain. 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 Current Functional Impairments (Reported) Functional Limitations- Mobility/Gait Walking around loop at [employer] ~4 times but must reduce speed on last laps. Functional Limitations- Work/School Pain during regular work. Difficulty climbing ladders. Difficulty lifting. Personal Factors Other Personal Factors That May Effect + positive experience with Therapy/Recovery past PT + positive attitude toward movement + low risk for catastrophization - works long hours in awkward positions/tight spaces PT-OP-C Subjective Start: 04/18/20 09:27 Freq: Status: Active Protocol: Document 05/21/20 15:18 MA (Rec: 05/21/20 16:12 MA [id number]) OP-PT Subjective Patient Comments Patient Comments Pt had to work twenty hours today since no one showed up for the next shift. He has not slept and his back is aggrivated today. He also started the keto diet and is hoping losing weight will help with his back pain. PT-OP-F Manual Assessment Start: 04/18/20 09:27 Freq: Status: Active Protocol: Document 04/25/20 10:34 AW (Rec: 04/25/20 17:47 AW [email or web address]) Manual Assessments Soft Tissue Assessment Soft Tissue Mobility Assessment increased density of lumbar paraspinals especially L3-S1 with right more affected than left Joint Mobility Assessment Joint Mobility Assessment lumbar P/A's limited especially L3-S1 PT-OP-G Mobility & Gait Start: 04/18/20 09:27 Freq: Status: Active Protocol: Document 04/25/20 10:34 AW (Rec: 04/25/20 17:47 AW [email or web address]) OP Gait Assessment Gait Gait Assistance Required: Independent Distance (Feet) 100 Assistive Devices Assistive Device None Orthotic/Prosthetic Devices or Brace: No Gait Deviations General Gait Pattern Decreased Stride Length, Decreased Feet Clearance,Wide Based Gait Factors Limiting Gait Function Factors Limiting Gait Function Decreased Strength,Limited Range of Motion,Pain Comments Gait Comments Pt ambulates with excessive turnout of bilateral feet, likely originating with externally rotated hips/ limited hip IR ROM. PT-OP-H Neuro Start: 04/18/20 09:27 Freq: Status: Active Protocol: Document 04/25/20 10:34 AW (Rec: 04/25/20 17:47 AW [email or web address]) Sensation Evaluation Gross Sensation Gross Sensation WNL Deep Tendon Reflex & Clonus Assessment Deep Tendon Reflex Bilateral Achilles Deep Tendon Reflex 1+ Diminished Bilateral Patellar Deep Tendon Reflex 1+ Diminished Vital Signs Blood Pressure Sitting Blood Pressure (90/60-120/80 mmHg) 170/105 H Blood Pressure Source Manual Cuff,Right Upper Extremity Comments Vital Signs Comments Pulse regular. Pt states I just chugged a Red Bull and I don't usually drink caffeine. PT-OP-J Posture/Palpation/Skin Start: 04/18/20 09:27 Freq: Status: Active Protocol: Document 04/25/20 10:34 AW (Rec: 04/25/20 17:47 AW [email or web address]) Posture Evaluation Position Standing Evaluation View Lateral Head/C-Spine Posture Forward Head L-Spine Posture Flattened,Decreased Lordosis Arm Posture (L) Internally Rotated,(R) Internally Rotated Pelvis Posture Posterior Tilted Weight Distribution Weight Shifted Left,Decreased Wt.Bear on (R) PT-OP-K Range of Motion Start: 04/18/20 09:27 Freq: Status: Active Protocol: Document 04/25/20 10:34 AW (Rec: 04/25/20 17:47 AW [email or web address]) Lumbar Spine Range of Motion Lumbar Spine Active Degrees Testing Position Standing Flexion 60 Extension 8 ROM Limitations Soft Tissue Tightness,Pain Comments Hinge noted at L1 with all lumbar movements. Right lateral flexion and left rotation are painful. Pt denies pain with lumbar flexion but has difficulty extending to neutral, is noted to use hands on thighs on initial attempt. Hip Goniometric Range of Motion Hip Active Hip ROM WFL No Hip ROM Limitations Comments Hip flexion limited by soft tissue/habitus. IR limited bilaterally. Knee Goniometric Range of Motion Knee Right Knee ROM WFL Yes Comments Bilateral knee ROM WNL PT-OP-L Special Tests Start: 04/18/20 09:27 Freq: Status: Active Protocol: Document 04/25/20 10:34 AW (Rec: 04/25/20 17:47 AW [email or web address]) Special Tests Lumbar Spine Special Tests Straight Leg Raise Test Results positive bilaterally Comments active SLR positive; improved symptoms with compression applied across pelv Manual Traction Comments relieveing Hip Special Tests Scour Test Test Results negative bilaterally Neural Special Tests- Lower Body Sciatic Nerve Tension Test Results slump positive RLE; mildly positive LLE PT-OP-M Strength Start: 04/18/20 09:27 Freq: Status: Active Protocol: Document 04/25/20 10:34 AW (Rec: 04/25/20 17:47 AW [email or web address]) Hip Strength Hip Manual Muscle Testing Left Flexion (L2) 4+ Good+ Extension (S1) 4- Good- Abduction 4- Good- External Rotation 4 Good Internal Rotation 4 Good Comments Right hip tests same as left Knee Strength Knee Manual Muscle Testing Left Flexion (S2) 4+ Good+ Extension (L3) 5 Normal Comments Right knee tests same as left Ankle/Foot Strength Ankle and Foot Manual Muscle Testing Left Dorsiflexion (L4) 5 Normal Plantarflexion (S1) 5 Normal Inversion 4+ Good+ Eversion (S1) 4+ Good+ Comments PF tested in standing. No unilateral deficit. PT-OP-Q Treatments Start: 04/18/20 09:27 Freq: Status: Active Protocol: Document 05/21/20 15:18 MA (Rec: 05/21/20 16:12 MA [id number]) Therapeutic Exercises Supine Exercises Stretch Supine Exercise Name Single knee to chest Side bilateral Reps/Minutes 4x30 sec LTR Supine Exercise Name cues to TrA contraction to bring knees back to neutral Side bilateral Reps/Minutes 10x holding for 10 sec 1 Supine Exercise Name bent knee fall out Side bilateral Reps/Minutes 3 min Comments cued TrA draw down and focus on breathing Other Exercises 4-point kneeling Other Exercise Name Arm extension only focusing on core stability Reps/Minutes 10x Manual Therapy Treatment Soft Tissue Mobilization paraspinals Body Location jemal paraspinals Mobilization Type Myofascial Release,Strumming, Sustained Pressure,Trigger Point Release Intensity/Depth Moderate Body Position Prone Manual Traction Traction Comments IR of LE for low back Manual Techniques Iliac Crest Scour Body Location Jemal Body Position Prone PT-OP-T Assessment and Plan Start: 04/18/20 09:27 Freq: Status: Active Protocol: Document 05/21/20 15:18 MA (Rec: 05/21/20 16:12 MA [id number]) Physical Therapy Assessment Goals 4 Impairment increased tone lumbar paraspinals Usp Goal (LTG) Pt will demonstrate reduction in tone at lumbar paraspinals for improved activity tolerance LTG Duration 10 weeks - 07/04/20 3 Impairment ROM Short Term Goal (STG) Pt will improve lateral flexion from 3 above knee with pain to 1.5 above knee without pain bilaterally STG Duration 5 weeks - 05/30/20 2 Impairment pain impacting daily function Extractor Operator Goal (LTG) Pt will score 35% or less on Modified Oswestry to demonstrate improvement in daily activities LTG Duration 10 weeks - 07/04/20 1 Impairment Pt has difficulty performing work duties Short Term Goal (STG) Pt will be able to tolerate standing 1 hour without increase in baseline pain. STG Duration 5 weeks - 05/30/20 Usp Goal (LTG) Pt will be able to lift 25 pounds without increase in baseline pain LTG Duration 10 weeks - 07/04/20 Assessment Summary Assessment Pt arrived to clinic after working a twenty-hour shift. He reports his 4-point kneeling with arm ext was easy so he added the opposite leg extension, stating it hurt but I pushed through. Discussed not pushing through back pain and focusing on tightening core to help decrease LBP. LTR is usually a comfortable stretch, but today pt states it is too much. Was able to perform bent knee fall out without increase in pain. Focused on STM to bilateral paraspinals R >L. Due to increased pain after long work day, pt was unable to tolerate much during treatment session. He has the next 48 hours off of work and hopes on Thursday he will be able to do more. Physical Therapy Plan Frequency and Duration Frequency of Treatment 2x/Week Duration of Treatment 10 weeks Plan of Care Start Date 04/25/20 Plan of Care End Date 07/04/20 Therapeutic Interventions Therapeutic Interventions Balance Training,Gait Training ,Home Exercise Program,Joint Mobilizations,Manual Therapy, Neuromuscular Re-education, Patient/Caregiver Education, Self-Care/Home Management,Soft Tissue Mobilization,Taping, Therapeutic Activities, Therapeutic Exercises Modalities Cold Pack/Ice Massage,Hot Packs Next Visit Focus/Plan Next Note Type Treatment Note Next Visit Plan If appropriate add IFC at end of next treatment session. Continue bent knee fall out, LTR, child's pose stretch and 4-point kneeling core work as tolerated.
--- NOTE | 2020-05-24 14:33 | PT-OP ANOTE ---
Pt DNS for am appt, MANAGER MOLECULAR called and pt forgot but agreed to taking 1430 appt. Pt called and cancelled just before 1430 appt and cancelled due to being called into work.
--- NOTE | 2020-05-25 09:17 | PT-OP ANOTE ---
Pt did not show for today's appt, called and left a message that he is discharged at this time and if feels wants to continue PT will need to call his physician for a new referral with keeping in mind that needs to attend appts for to allow benefits. 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
--- NOTE | 2020-05-30 09:15 | PT.OPDS ---
Current Diagnoses Dorsalgia, unspecified (05/21/20) Abnormal posture (05/21/20) Visit Care Team Role Provider Type Megan Flores DO Attending Provider Physician Family Provider Primary Care Provider Referring Provider Specialty: Family Practice Address: [address] [place] [address], [address], [place], [address] Email: [email or web address] Visit Number Visit Number 07/17 Discharge Summary PT-OP-B Current Condition Start: 04/18/20 09:27 Freq: Status: Active Protocol: Document 04/25/20 10:34 AW (Rec: 04/25/20 11:21 AW [id number]) Current Condition History of Current Condition Onset Date several years Current Complaints low back pain History of Current Condition Yovani reports low back pain which has been mostly stable for years. Some days are worse than others. There are days when I can't get out of bed and I might end up on the floor and not be able to get up. 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 He is on his feet for long periods of time . He works [id number] and sleeps during days. He is currently sleeping ~6-7 hours daily with trazadone and reports good sleep hygiene with a fairly regular sleep schedule. Since pt sleeps 0800 -1500, later afternoon appointments would work best for him. Pt reports back issues when he was younger but that they resolved. Current pain does not improve. Pt has low back pain (right more affected than left) and pain in right buttock and posterior thigh. Radiating pain does not usually extend past his knee. Prior Treatments and Tests - trazadone for sleep - MRI imaging a few years ago . Records unavailable - Pain management with Dr. Sesay - PT here 4 years ago Future Testing and Treatments Planned MRI in future depending on PT Prior Functional Status Baseline Function- ADL's Independent Baseline Function- Mobility Independent Baseline Function- Gait Could walk as far as needed without pain. 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 Current Functional Impairments (Reported) Functional Limitations- Mobility/Gait Walking around loop at [employer] ~4 times but must reduce speed on last laps. Functional Limitations- Work/School Pain during regular work. Difficulty climbing ladders. Difficulty lifting. Personal Factors Other Personal Factors That May Effect + positive experience with Therapy/Recovery past PT + positive attitude toward movement + low risk for catastrophization - works long hours in awkward positions/tight spaces PT-OP-C Subjective Start: 04/18/20 09:27 Freq: Status: Active Protocol: Document 05/21/20 15:18 MA (Rec: 05/21/20 16:12 MA [id number]) OP-PT Subjective Patient Comments Patient Comments Pt had to work twenty hours today since no one showed up for the next shift. He has not slept and his back is aggrivated today. He also started the keto diet and is hoping losing weight will help with his back pain. PT-OP-F Manual Assessment Start: 04/18/20 09:27 Freq: Status: Active Protocol: Document 04/25/20 10:34 AW (Rec: 04/25/20 17:47 AW [email or web address]) Manual Assessments Soft Tissue Assessment Soft Tissue Mobility Assessment increased density of lumbar paraspinals especially L3-S1 with right more affected than left Joint Mobility Assessment Joint Mobility Assessment lumbar P/A's limited especially L3-S1 PT-OP-G Mobility & Gait Start: 04/18/20 09:27 Freq: Status: Active Protocol: Document 04/25/20 10:34 AW (Rec: 04/25/20 17:47 AW [email or web address]) OP Gait Assessment Gait Gait Assistance Required: Independent Distance (Feet) 100 Assistive Devices Assistive Device None Orthotic/Prosthetic Devices or Brace: No Gait Deviations General Gait Pattern Decreased Stride Length, Decreased Feet Clearance,Wide Based Gait Factors Limiting Gait Function Factors Limiting Gait Function Decreased Strength,Limited Range of Motion,Pain Comments Gait Comments Pt ambulates with excessive turnout of bilateral feet, likely originating with externally rotated hips/ limited hip IR ROM. PT-OP-H Neuro Start: 04/18/20 09:27 Freq: Status: Active Protocol: Document 04/25/20 10:34 AW (Rec: 04/25/20 17:47 AW [email or web address]) Sensation Evaluation Gross Sensation Gross Sensation WNL Deep Tendon Reflex & Clonus Assessment Deep Tendon Reflex Bilateral Achilles Deep Tendon Reflex 1+ Diminished Bilateral Patellar Deep Tendon Reflex 1+ Diminished Vital Signs Blood Pressure Sitting Blood Pressure (90/60-120/80 mmHg) 170/105 H Blood Pressure Source Manual Cuff,Right Upper Extremity Comments Vital Signs Comments Pulse regular. Pt states I just chugged a Red Bull and I don't usually drink caffeine. PT-OP-J Posture/Palpation/Skin Start: 04/18/20 09:27 Freq: Status: Active Protocol: Document 04/25/20 10:34 AW (Rec: 04/25/20 17:47 AW [email or web address]) Posture Evaluation Position Standing Evaluation View Lateral Head/C-Spine Posture Forward Head L-Spine Posture Flattened,Decreased Lordosis Arm Posture (L) Internally Rotated,(R) Internally Rotated Pelvis Posture Posterior Tilted Weight Distribution Weight Shifted Left,Decreased Wt.Bear on (R) PT-OP-K Range of Motion Start: 04/18/20 09:27 Freq: Status: Active Protocol: Document 04/25/20 10:34 AW (Rec: 04/25/20 17:47 AW [email or web address]) Lumbar Spine Range of Motion Lumbar Spine Active Degrees Testing Position Standing Flexion 60 Extension 8 ROM Limitations Soft Tissue Tightness,Pain Comments Hinge noted at L1 with all lumbar movements. Right lateral flexion and left rotation are painful. Pt denies pain with lumbar flexion but has difficulty extending to neutral, is noted to use hands on thighs on initial attempt. Hip Goniometric Range of Motion Hip Active Hip ROM WFL No Hip ROM Limitations Comments Hip flexion limited by soft tissue/habitus. IR limited bilaterally. Knee Goniometric Range of Motion Knee Right Knee ROM WFL Yes Comments Bilateral knee ROM WNL PT-OP-L Special Tests Start: 04/18/20 09:27 Freq: Status: Active Protocol: Document 04/25/20 10:34 AW (Rec: 04/25/20 17:47 AW [email or web address]) Special Tests Lumbar Spine Special Tests Straight Leg Raise Test Results positive bilaterally Comments active SLR positive; improved symptoms with compression applied across pelv Manual Traction Comments relieveing Hip Special Tests Scour Test Test Results negative bilaterally Neural Special Tests- Lower Body Sciatic Nerve Tension Test Results slump positive RLE; mildly positive LLE PT-OP-M Strength Start: 04/18/20 09:27 Freq: Status: Active Protocol: Document 04/25/20 10:34 AW (Rec: 04/25/20 17:47 AW [email or web address]) Hip Strength Hip Manual Muscle Testing Left Flexion (L2) 4+ Good+ Extension (S1) 4- Good- Abduction 4- Good- External Rotation 4 Good Internal Rotation 4 Good Comments Right hip tests same as left Knee Strength Knee Manual Muscle Testing Left Flexion (S2) 4+ Good+ Extension (L3) 5 Normal Comments Right knee tests same as left Ankle/Foot Strength Ankle and Foot Manual Muscle Testing Left Dorsiflexion (L4) 5 Normal Plantarflexion (S1) 5 Normal Inversion 4+ Good+ Eversion (S1) 4+ Good+ Comments PF tested in standing. No unilateral deficit. PT-OP-T Assessment and Plan Start: 04/18/20 09:27 Freq: Status: Active Protocol: Document 05/30/20 09:12 AW (Rec: 05/30/20 09:15 AW [email or web address]) Physical Therapy Assessment Rehab Potential Rehabilitation Potential Good Evaluation Complexity Number of Personal Factors/Comorbidities 1-2 Number of Body Systems Impaired 1-2 Clinical Presentation at Evaluation Stable Impairments Impairments Activity Tolerance,Functional Activities,Functional Mobility ,Gait,Pain,Posture,ROM,Soft Tissue Mobility,Strength Goals 4 Impairment increased tone lumbar paraspinals [facility] Goal (LTG) Pt will demonstrate reduction in tone at lumbar paraspinals for improved activity tolerance LTG Duration 10 weeks - 07/04/20 3 Impairment ROM Short Term Goal (STG) Pt will improve lateral flexion from 3 above knee with pain to 1.5 above knee without pain bilaterally STG Duration 5 weeks - 05/30/20 2 Impairment pain impacting daily function Chcf Goal (LTG) Pt will score 35% or less on Modified Oswestry to demonstrate improvement in daily activities LTG Duration 10 weeks - 07/04/20 1 Impairment Pt has difficulty performing work duties Short Term Goal (STG) Pt will be able to tolerate standing 1 hour without increase in baseline pain. STG Duration 5 weeks - 05/30/20 [facility]cf Goal (LTG) Pt will be able to lift 25 pounds without increase in baseline pain LTG Duration 10 weeks - 07/04/20 Physical Therapy Plan Frequency and Duration Frequency of Treatment 2x/Week Duration of Treatment 10 weeks Plan of Care Start Date 04/25/20 Plan of Care End Date 07/04/20 Therapeutic Interventions Therapeutic Interventions Balance Training,Gait Training ,Home Exercise Program,Joint Mobilizations,Manual Therapy, Neuromuscular Re-education, Patient/Caregiver Education, Self-Care/Home Management,Soft Tissue Mobilization,Taping, Therapeutic Activities, Therapeutic Exercises Modalities Cold Pack/Ice Massage,Hot Packs Discharge Physical Therapy Discharge Reasons No Longer Attending PT Discharge Comments Pt missed, rescheduled, and no -showed several appointments. EDGERMAN notified him by phone that remaining appointments would be canceled and he would need a new physician referral and improved attendance if he wished to return to PT.
== END 2020-05-31 08:23 ==
LOC: PHYS 15:15
PROVIDERS: Family Provider Family Medicine; PCP Family Medicine; Referring Provider Family Medicine; Visit Provider Family Medicine
DX: M54.9 Dorsalgia, unspecified (principal); R29.3 Abnormal posture
CPT/HCPCS: 97110; 97140; 97161

== ENCOUNTER 2020-12-14 11:35 | Emergency (ER) | payer OTHER, MEDICAID, SELFPAY ==
[2020-12-14 11:40] VITALS: BP 185/98; PULSE 88; RESP 20; TEMP 37.1; O2SAT 97; BMI 37.2
[2020-12-14 12:08] LABS: COVID19 -Nasal RAPID Negative (Negative)
--- NOTE | 2020-12-14 12:16 | ED.URI ---
HPI - URI/Sore Throat General Chief Complaint: Upper Respiratory Symptoms Stated Complaint: exposed to covid 6 days ago/symptomatic 2 days Time Seen by Provider: 12/14/20 11:38 Source: patient Mode of arrival: Ambulatory Limitations: no limitations History of Present Illness HPI Narrative: 40-year-old male smoker presents with runny nose, sore throat, hacking cough and wheezing for the past day and a half. He denies GI complaints such as nausea, vomiting or diarrhea. He has no chest pain. He states that he was exposed to a person that has since become positive for COVID 6 days ago. He was in close proximity for quite some time. She just tested positive yesterday. He just started having symptoms yesterday. He denies recent travel. He has been unable to receive the vaccination as he has been incredibly busy at work Related Data Previous Rx's Medication Instructions Recorded meloxicam 15 mg tablet 15 mg PO QDAY #30 tab 05/22/20 bupropion HCl 450 mg 24 hr tablet, 450 mg PO DAILY #90 tab 11/08/20 extended release prazosin 2 mg capsule See Rx Instructions PO QPM #120 11/08/20 cap MDD 8 mg trazodone 100 mg tablet 100 mg PO BEDTIME #90 tab 11/08/20 oxycodone-acetaminophen 7.5 mg-325 1 tab PO BID PRN #60 tab 12/10/20 mg tablet (Percocet) albuterol sulfate 90 mcg/actuation 2 puff INHALATION Q4H PRN #1 each 12/14/20 breath activated powder inhaler Allergies Allergy/AdvReac Type Severity Reaction Status Date / Time neomycin Allergy Unknown Verified 12/14/20 11:48 polymyxin B Allergy Unknown Verified 12/14/20 11:48 pain contract Allergy Unknown Uncoded 12/10/20 15:55 Review of Systems Review of Systems Narrative: GENERAL: See HPI HEENT: See HPI RESPIRATORY: See HPI CARDIOVASCULAR: Denies chest pain, palpitations, orthopnea, edema, GASTROINTESTINAL: Denies nausea, vomiting, abdominal pain, diarrhea, constipation, melena. : Denies dysuria, frequency, incontinence, hematuria, urinary retention. MUSCULOSKELETAL: denies weakness, joint pain, or bony pain SKIN: Denies rash, skin lesions, or other NEUROLOGIC: Denies weakness, headache, numbness, change in speech, confusion, seizures, incoordination. PSYCHIATRIC: No concerning psychosocial issues. 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) Tobacco use Surgical History History of varicose vein stripping (~2015) History of vasectomy (~2009) Status post arthroscopy (~2012) Status post knee surgery (~2011) Status post knee surgery (~2009) Family History Father Diabetes mellitus Obesity Mother Age: 62 Obesity Social History Smoking Status: Current some day smoker alcohol intake: current substance use type: marijuana Smoking Status: Current some day smoker alcohol intake frequency: holidays/special occasions only Substance Use Type: does not use and marijuana Exam Narrative Exam Narrative: GEN: AOx3 and in mild distress GCS 15 EYES: Pupils are equal, round, and reactive to light and accommodation. Extraoccular muscles are intact bilaterally. There is no subconjunctival hemorrhage or exudate. ENT: Clear nasal drip, no tonsillar swelling or exudate, no anterior lymphadenopathy CHEST: No increased work of breathing, pulse ox in the upper 90s. There is some mild expiratory wheeze. ABD: Abdomen is soft and nontender. There is no guarding or rebound. Bowel sounds are normal in all 4 quadrants. There is no mass or organomegaly. EXT: Full painless ROM of all extremities with no loss of sensation or strength. SKIN: Warm, pink, and dry. No erythema or rash Initial Vital Signs Initial Vital Signs: Vital Signs Temperature 98.8 F 12/14/20 11:40 Pulse Rate 88 12/14/20 11:40 Respiratory Rate 20 12/14/20 11:40 Blood Pressure 185/98 H 12/14/20 11:40 Pulse Oximetry 97 12/14/20 11:40 Course Orders Ordered: ED Orders 12/14/20 11:45 COVID19 -Nasal swab/Pre-Proc Stat 12/14/20 12:18 XR chest 1V Stat Vital Signs Vital signs: Vital Signs - 8 hr 12/14/20 11:40 12/14/20 13:05 Temperature 98.8 F Pulse Rate 88 50 L Respiratory Rate 20 20 Blood Pressure 185/98 H 179/86 H Pulse Oximetry 97 97 MDM - URI/Sore Throat Lab Data Labs: Lab Results 12/14/20 Range/Units 11:45 SARS-CoV-2 (PCR) Negative (Negative) Discharge Plan Departure Patient Disposition: Home Clinical Impression: Upper respiratory infection, viral, Upper respiratory infection Instructions: DI for Viral Upper Respiratory Infection -- Adult Activity Restrictions/Additional Instructions: *You have been diagnosed with [Suspected COVID-19. I recommend following COVID guidelines and also consider retesting in a few days if worse] *What to do: * per recommendations from the CDC and the [facility] Department of Health * stay home except to get medical care. Restrict activities outside your home, except for getting medical care. Do not go to work, school, or public areas. Avoid using public transportation, ride sharing, or taxis. * separate yourself from other people in your home. * call ahead before visiting your doctor * Wear a facemask * Cover your coughs and sneezes * Clean your hands often * Avoid sharing household items * Clean all high-touch services every day * Monitor your symptoms and seek prompt medical attention if your illness is worsening, particularly with difficulty in breathing. You may discontinue your isolation when: 1. You have been fever-free for at least 24 hours without the use of fever reducing medication, AND 2. Your symptoms are getting better 3. At least 10 days have passed since symptoms first appeared Individuals with laboratory confirmed COVID-19 who have not had any symptoms may discontinue home isolation when at least 10 days have passed since the date of their first COVID-19 diagnostic test and have had no subsequent illness Prescriptions: New albuterol sulfate 90 mcg/actuation aerosol powdr breath activated 2 puff INHALATION Q4H PRN (Reason: shortness of breath or wheezing) Qty: 1 RF: 0 No Action meloxicam 15 mg tablet 15 mg PO QDAY Qty: 30 RF: 5 Hold Instructions: While on Dexamethasone bupropion HCl 450 mg tablet extended release 24 hr 450 mg PO DAILY Qty: 90 RF: 3 trazodone 100 mg tablet 100 mg PO BEDTIME Qty: 90 RF: 1 prazosin 2 mg capsule See Rx Instructions PO QPM MDD 8 mg Qty: 120 RF: 4 oxycodone-acetaminophen [Percocet] 7.5-325 mg tablet 1 tab PO BID PRN (Reason: pain) Qty: 60 RF: 0 Referrals: Megan Flores DO [Primary Care Provider] - Stand Alone Forms: Work Release Note
--- NOTE | 2020-12-14 12:18 | DI.RAD.S_ITS ---
PROCEDURE: XR CHEST 1V INDICATIONS: cough, fever, wheeze TECHNIQUE: One view of the chest was acquired. COMPARISON: None. FINDINGS: Surgical changes and devices: None. Lungs and pleura: Lungs are clear, considering reduced inspiration. No pleural effusions or pneumothorax. Mediastinum: Mediastinal contours appear normal. Heart size is normal. Bones and chest wall: No suspicious bony lesions. Overlying soft tissues appear unremarkable. IMPRESSION: Reduced inspiratory volume and no pneumonia is found when this factor is taken into account. Dictated by: Boy Holloway M.D. on 12/14/2020 at 12:42 Approved by: Boy Holloway M.D. on 12/14/2020 at 12:42
[2020-12-14 13:05] VITALS: BP 179/86; PULSE 50; RESP 20; O2SAT 97
== END 2020-12-14 13:09 | disposition home or self-care (01) ==
PROVIDERS: Emergency Provider Emergency Medicine; Family Provider Family Medicine; PCP Family Medicine
DX: J06.9 Acute upper respiratory infection, unspecified (principal); R05 Cough; R50.9 Fever, unspecified; Z20.822 Contact with and (suspected) exposure to COVID-19
CPT/HCPCS: 71045; 87635; 99281; 99283; C9803

== ENCOUNTER → 2020-12-17 08:28 | Outpatient (CLI) | payer OTHER, MEDICAID, SELFPAY ==
--- NOTE | 2020-12-17 08:29 | DI.RAD.S_ITS ---
PROCEDURE: XR LUMBAR SPINE 2-3V INDICATIONS: Low back pain with right lower extremity paresthesias TECHNIQUE: 3 views of the lumbar spine were acquired. COMPARISON: None. FINDINGS: Bones: 5 [id number] vertebrae are present. Bony alignment is within normal limits. Lower lumbar spine facet joint hypertrophy. A small anterior vertebral body osteophytes. No vertebral body compression fractures. No suspicious bony lesions. Soft tissues: Overlying bowel gas pattern is normal. No suspicious soft tissue calcifications. Cholecystectomy clips. Clips in the right lower quadrant. IMPRESSION: Mild degenerative change appreciated in the lumbar spine. Dictated by: Adrian Holland M.D. on 12/17/2020 at 8:56 Approved by: Adrian Holland M.D. on 12/17/2020 at 9:02
== END ==
PROVIDERS: Family Provider Family Medicine; PCP Family Medicine; Referring Provider Family Medicine; Visit Provider Family Medicine
DX: M47.26 Other spondylosis with radiculopathy, lumbar region (principal)
CPT/HCPCS: 72100

== ENCOUNTER → 2021-10-10 09:59 | Outpatient (CLI) | payer OTHER, MEDICAID, SELFPAY ==
[2021-10-10 11:54] LABS: Alanine Aminotransferase 38 IU/L (<50); Albumin 4.4 g/dL (3.5-5.0); Albumin Globulin Ratio 1.4 (1.0-2.8); Alkaline Phosphatase 68 U/L (38-126); Aspartate Aminotransferase 41 IU/L (17-59); BUN Creatinine Ratio 12.7 (6-22); Bilirubin Total 0.4 mg/dL (0.2-1.3); Blood Urea Nitrogen 14 mg/dL (9-20); Calcium 8.7 mg/dL (8.4-10.2); Carbon Dioxide 26 mmol/L (22-32); Chloride 105 mmol/L (98-107); Cholesterol 174 mg/dL (140-199); Estimated Glomerular Filt Rate > 60 mL/min (>60); Globulin 3.2 g/dL (1.7-4.1); Glucose 113 mg/dL (70-100); HDL Cholesterol 59 mg/dL (40-60); HEMOLYSIS 16 (0-50); LDL Cholesterol Calculated 74 mg/dL (<100); Potassium 4.4 mmol/L (3.4-5.1); Sodium 140 mmol/L (137-145); Total Protein 7.6 g/dL (6.3-8.2); Triglycerides 206 mg/dL (35-150)
[2021-10-10 12:28] LABS: Appearance Urine UA CLEAR; Bilirubin Urine UA NEGATIVE (NEGATIVE); Color Urine UA YELLOW; Glucose Urine UA NEGATIVE (Negative); Ketones Urine UA NEGATIVE (NEGATIVE); Leukocyte Esterase Urine UA NEGATIVE (NEGATIVE); Nitrite Urine UA NEGATIVE (Negative); Occult Blood Urine UA TRACE-INTACT (Negative); Protein Urine UA TRACE (Negative); Specific Gravity Urine UA 1.025 (1.000-1.035); Urobilinogen Urine UA 0.2 E.U./dL (0.2)
[2021-10-10 13:06] LABS: UR Morphine/Opiate cutoff 300 Negative (Negative); Ur Creatinine Normal (Normal); Ur Specific Gravity Normal (Normal); Urine Amphetamines Negative (Negative); Urine Barbiturates Negative (Negative); Urine Benzodiazepines Negative (Negative); Urine Cocaine Negative (Negative); Urine MDMA Negative (Negative); Urine Methadone Negative (Negative); Urine Methamphetamines Negative (Negative); Urine Oxycodone Positive (Negative); Urine Phencyclidine Negative (Negative); Urine Tetrahydrocannabinol Positive (Negative); Urine Tricyclic Antidepressant Negative (Negative); Urine pH Normal (Normal)
== END ==
PROVIDERS: Family Medicine; Family Provider Family Medicine; PCP Pediatrics; Referring Provider Pediatrics; Visit Provider Pediatrics
DX: E66.9 Obesity, unspecified (principal); G89.29 Other chronic pain; M54.50 Low back pain, unspecified; Z13.220 Encounter for screening for lipoid disorders
CPT/HCPCS: 36415; 80053; 80061; 80305; 81003

== ENCOUNTER 2021-10-25 20:37 | Emergency (ER) | payer OTHER, MEDICAID, SELFPAY ==
[2021-10-25] VITALS (11 sets, daily range): BP systolic 143–190; BP diastolic 83–108; PULSE 107–116; RESP 13–22; TEMP 37.6; O2SAT 95–97; BMI 35.9
--- NOTE | 2021-10-25 20:57 | DI.RAD.S_ITS ---
PROCEDURE: XR CHEST 1V INDICATIONS: chest pain TECHNIQUE: One view of the chest was acquired. COMPARISON: [facility], CR, XR CHEST 1V, 12/14/2020, 12:22. FINDINGS: Surgical changes and devices: None. Lungs and pleura: Lungs are clear. No pleural effusions or pneumothorax. Mediastinum: Mediastinal contours appear normal. Heart size is normal. Bones and chest wall: No suspicious bony lesions. Overlying soft tissues appear unremarkable. IMPRESSION: 1. No acute cardiopulmonary disease. Dictated by: Roaslino Raymond M.D. on 10/25/2021 at 22:02 Approved by: Rosalino Raymond M.D. on 10/25/2021 at 22:03
--- NOTE | 2021-10-25 21:19 | ED_ITS ---
HPI - Chest Pain General Chief Complaint: Chest Pain Stated Complaint: Dizzy, chest pain, left arm cold/pain Time Seen by Provider: 10/25/21 20:56 Source: patient Mode of arrival: Wheelchair Limitations: no limitations History of Present Illness HPI narrative: Patient is a 41-year-old male he stated that earlier today he had a generalized feeling that he did not feel very well. As the day went on on symptoms seem to become worse. He started to have some left arm discomfort that moved into the left side of his chest. No cough. No shortness of breath. Was having some lightheadedness. Is having palpitations. He describes the lightheadedness as an unsteadiness and not a room spinning sensation. No headache no sore throat no fever. No abdominal pain. Some nausea but no vomiting. No urinary symptoms she. No change in bowel habits. No skin rashes. Has never had any symptoms like this in the past. Has not tried anything for symptoms prior to arrival. Related Data Previous Rx's Medication Instructions Recorded bupropion HCl 450 mg 24 hr tablet, 450 mg PO DAILY #90 tabs 08/14/21 extended release meloxicam 15 mg tablet 15 mg PO QDAY #90 tabs 08/14/21 prazosin 2 mg capsule See Rx Instructions PO QPM #200 08/14/21 caps trazodone 100 mg tablet 100 mg PO BEDTIME #90 tabs 08/14/21 oxycodone 5 mg tablet 5 mg PO TID PRN pain #75 tabs 10/14/21 nitroglycerin 0.4 mg sublingual 0.4 mg sublingual Q5M PRN chest 10/26/21 tablet pain #90 tabs Allergies Allergy/AdvReac Type Severity Reaction Status Date / Time neomycin Allergy Unknown Verified 10/10/21 09:55 polymyxin B Allergy Unknown Verified 10/10/21 09:55 pain contract Allergy Unknown Uncoded 10/10/21 09:55 Review of Systems Review of Systems ROS Unobtainable: All systems reviewed & are unremarkable except as noted in HPI and below Patient History Medical History Acute exacerbation of chronic low back pain Cellulitis of right leg 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, 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) Tobacco use Surgical History History of varicose vein stripping (~2015) History of vasectomy (~2009) Status post arthroscopy (~2012) Status post knee surgery (~2011) Status post knee surgery (~2009) Family History Father Diabetes mellitus Obesity Mother Age: 63 Obesity Social History Smoking Status: Current some day smoker alcohol intake: current substance use type: marijuana Smoking Status: Current some day smoker alcohol intake frequency: 0-2 drinks per day Substance Use Type: marijuana Exam Initial Vital Signs Initial Vital Signs: Vital Signs Temperature 99.6 F 10/25/21 20:52 Pulse Rate 113 H 10/25/21 20:52 Respiratory Rate 20 10/25/21 20:52 Blood Pressure 190/108 H 10/25/21 20:52 Pulse Oximetry 96 10/25/21 20:52 Oxygen Delivery Method 10/25/21 20:52 Const General: cooperative, comfortable and No ill appearing HENMT Head: normal to inspection and normocephalic Chest Chest: normal inspection of the chest Resp Effort & Inspection: normal respiratory effort Auscultation: clear to auscultation bilaterally Cardio Rate: tachycardic Rhythm: regular rhythm GI Inspection: normal to inspection Palpation: soft and No tender Skin General: no rashes or lesions noted Neuro General: patient alert, patient awake, patient oriented x3 and moves all extremities Extrem General: No edema Psych Appearance: grossly normal and well kempt Course Orders Ordered: ED Orders 10/25/21 20:55 EKG-12 Lead Stat 10/25/21 20:57 XR chest 1V Stat 10/25/21 21:25 Complete Blood Count AUTO DIFF Stat Comprehensive Metabolic Panel Stat D Dimer Stat Lipase Stat Magnesium Stat Troponin & CK Cardiac Panel Stat 10/25/21 22:10 CT angio chest PE protocol Stat 10/25/21 23:18 COVID19 -Nasal RAPID/Pre-Proc Stat 10/25/21 23:53 Troponin & CK Cardiac Panel Stat Discontinued Medications Sodium Chloride (Normal Saline 0.9%) 1,000 mls @ 1,000 mls/hr IV BOLUS ONE Stop: 10/25/21 23:08 Last Infusion: 10/26/21 00:35 Dose: 0 mls/hr Documented By: Admin: 10/25/21 22:33 Dose: 1,000 mls/hr Documented By: ADAMA Lorazepam (Lorazepam 2 Mg/Ml Inj) 1 mg IV NOW ONE Stop: 10/25/21 21:21 Last Admin: 10/25/21 21:36 Dose: 1 mg Documented By: ADAMA Nitroglycerin (Nitroglycerin 0.4 Mg Sl Tab) 0.4 mg SL [id number] PRN PRN Reason: Chest Pain Last Admin: 10/26/21 00:25 Dose: 0.4 mg Documented By: Admin: 10/26/21 00:05 Dose: 0.4 mg Documented By: Admin: 10/25/21 23:53 Dose: 0.4 mg Documented By: JA Vital Signs Vital signs: Vital Signs - 8 hr 10/25/21 20:52 10/25/21 21:20 10/25/21 21:22 Temperature 99.6 F Pulse Rate 113 H 113 H Respiratory Rate 20 14 Blood Pressure 190/108 H 152/91 H Pulse Oximetry 96 97 Oxygen Delivery Method Room Air 10/25/21 21:22 10/25/21 21:30 10/25/21 21:30 Temperature Pulse Rate 114 H 112 H Respiratory Rate 14 21 Blood Pressure 152/86 H Pulse Oximetry 97 97 Oxygen Delivery Method Room Air 10/25/21 22:00 10/25/21 22:00 10/25/21 22:30 Temperature Pulse Rate 116 H 111 H Respiratory Rate 22 21 Blood Pressure 163/97 H Pulse Oximetry 96 97 Oxygen Delivery Method 10/25/21 22:36 10/25/21 22:36 10/25/21 23:00 Temperature Pulse Rate 111 H Respiratory Rate 20 Blood Pressure 154/87 H 169/83 H Pulse Oximetry 97 Oxygen Delivery Method 10/25/21 23:00 10/25/21 23:30 10/25/21 23:30 Temperature Pulse Rate 107 H 109 H Respiratory Rate 14 13 Blood Pressure 143/87 H Pulse Oximetry 97 97 Oxygen Delivery Method 10/25/21 23:53 10/25/21 23:53 10/25/21 23:55 Temperature Pulse Rate 116 H Respiratory Rate 18 Blood Pressure 149/88 H 162/94 H Pulse Oximetry 95 Oxygen Delivery Method 10/25/21 23:55 10/26/21 00:00 10/26/21 00:00 Temperature Pulse Rate 112 H 114 H Respiratory Rate 17 16 Blood Pressure 157/73 H Pulse Oximetry 95 92 Oxygen Delivery Method 10/26/21 00:05 10/26/21 00:05 10/26/21 00:10 Temperature Pulse Rate 110 H Respiratory Rate 17 Blood Pressure 148/73 H 140/69 Pulse Oximetry 95 Oxygen Delivery Method 10/26/21 00:10 10/26/21 00:15 10/26/21 00:15 Temperature Pulse Rate 113 H 112 H Respiratory Rate 18 18 Blood Pressure 145/68 H Pulse Oximetry 91 93 Oxygen Delivery Method 10/26/21 00:20 10/26/21 00:20 10/26/21 00:25 Temperature Pulse Rate 111 H Respiratory Rate 17 Blood Pressure 153/69 H 154/68 H Pulse Oximetry 93 Oxygen Delivery Method 10/26/21 00:25 10/26/21 00:30 10/26/21 00:30 Temperature Pulse Rate 108 H 115 H Respiratory Rate 16 16 Blood Pressure 140/65 Pulse Oximetry 94 90 L Oxygen Delivery Method 10/26/21 01:00 10/26/21 01:30 10/26/21 02:00 Temperature 100.9 F H Pulse Rate 108 H 113 H 109 H Respiratory Rate 24 23 17 Blood Pressure Pulse Oximetry Oxygen Delivery Method MDM - Chest Pain Lab Data Attestation: I reviewed the patient's lab results. Result diagrams: 10/25/21 21:25 10/25/21 21:25 Labs: Lab Results 10/25/21 10/25/21 10/25/21 Range/Units 21:25 21:25 21:25 WBC 7.2 (4.5-11.0) X10^3/uL RBC 5.03 (4.5-5.9) X10^6/uL Hgb 15.0 (13.5-17.5) g/dL Hct 42.8 (41-53) % MCV 85.0 (80-100) fL MCH 29.9 (26-34) PG MCHC 35.1 (30-36) % RDW 14.4 (11.6-14.8) % Plt Count 282 (150-400) X10^3/uL Neut % (Auto) 78.9 H (50-75) % Lymph % (Auto) 6.3 L (25-40) % Ritchie % (Auto) 12.5 (3-14) % Eos % (Auto) 1.4 L (2-4) % Baso % (Auto) 0.9 (0-2) % Neut # (Auto) 5700 (5796-5906) /uL Lymph # (Auto) 500 L (0877-0296) /uL Ritchie # (Auto) 900 (0-900) /uL Eos # (Auto) 100 (0-450) /uL Baso # (Auto) 100 (0-100) /uL D-Dimer 280 H (<230) ng/mL Sodium 135 L (137-145) mmol/L Potassium 3.7 (3.4-5.1) mmol/L Chloride 99 (98-107) mmol/L Carbon Dioxide 27 (22-32) mmol/L BUN 10 (9-20) mg/dL Creatinine 0.83 (0.66-1.25) mg/dL Estimated GFR > 60 (>60) mL/min BUN/Creatinine Ratio 12.0 (6-22) Glucose 100 (70-100) mg/dL Calcium 9.0 (8.4-10.2) mg/dL Magnesium 1.9 (1.6-2.3) mg/dL Total Bilirubin 0.6 (0.2-1.3) mg/dL AST 26 (17-59) IU/L ALT 28 (<50) IU/L Alkaline Phosphatase 80 (38-126) U/L Total Creatine Kinase 75 (55-170) U/L CK-MB (CK-2) TNP CK-MB (CK-2) Rel Index TNP Troponin I < 0.012 (0.01-0.034) ng/mL Total Protein 7.9 (6.3-8.2) g/dL Albumin 4.5 (3.5-5.0) g/dL Globulin 3.4 (1.7-4.1) g/dL Albumin/Globulin Ratio 1.3 (1.0-2.8) Lipase 59 (23-300) U/L SARS-CoV-2 (PCR) (Negative) 10/25/21 10/26/21 Range/Units 23:18 00:40 WBC (4.5-11.0) X10^3/uL RBC (4.5-5.9) X10^6/uL Hgb (13.5-17.5) g/dL Hct (41-53) % MCV (80-100) fL MCH (26-34) PG MCHC (30-36) % RDW (11.6-14.8) % Plt Count (150-400) X10^3/uL Neut % (Auto) (50-75) % Lymph % (Auto) (25-40) % Ritchie % (Auto) (3-14) % Eos % (Auto) (2-4) % Baso % (Auto) (0-2) % Neut # (Auto) (4512-0907) /uL Lymph # (Auto) (4705-5850) /uL Ritchie # (Auto) (0-900) /uL Eos # (Auto) (0-450) /uL Baso # (Auto) (0-100) /uL D-Dimer (<230) ng/mL Sodium (137-145) mmol/L Potassium (3.4-5.1) mmol/L Chloride (98-107) mmol/L Carbon Dioxide (22-32) mmol/L BUN (9-20) mg/dL Creatinine (0.66-1.25) mg/dL Estimated GFR (>60) mL/min BUN/Creatinine Ratio (6-22) Glucose (70-100) mg/dL Calcium (8.4-10.2) mg/dL Magnesium (1.6-2.3) mg/dL Total Bilirubin (0.2-1.3) mg/dL AST (17-59) IU/L ALT (<50) IU/L Alkaline Phosphatase (38-126) U/L Total Creatine Kinase 61 (55-170) U/L CK-MB (CK-2) TNP CK-MB (CK-2) Rel Index TNP Troponin I < 0.012 (0.01-0.034) ng/mL Total Protein (6.3-8.2) g/dL Albumin (3.5-5.0) g/dL Globulin (1.7-4.1) g/dL Albumin/Globulin Ratio (1.0-2.8) Lipase (23-300) U/L SARS-CoV-2 (PCR) Negative (Negative) Imaging Data Chest x-ray: Radiologist's Impression: [address] [address] XRay Report Signed Patient: Yovani Edmond MR#: [id number] : 1980 Acct:[id number] Age/Sex: 41 / M Date of Service: 10/25/21 Loc: ED Accession Number: [id number] ?? Procedure: XR chest 1V Ordering Provider: Luz Maria Nieves D.O. PROCEDURE:? XR CHEST 1V ? INDICATIONS:? chest pain ? TECHNIQUE:? One view of the chest was acquired.? ? COMPARISON:? [facility], XR CHEST 1V, 12/14/2020, 12:22. ? FINDINGS:? ? Surgical changes and devices:? None.? ? Lungs and pleura:? Lungs are clear.? No pleural effusions or pneumothorax.? ? Mediastinum:? Mediastinal contours appear normal.? Heart size is normal.? ? Bones and chest wall:? No suspicious bony lesions.? Overlying soft tissues appear unremarkable.? ? IMPRESSION:? ? 1.? No acute cardiopulmonary disease. ? ? ? Dictated by: Rosalino Raymond M.D. on 10/25/2021 at 22:02 ? ? Approved by: Rosalino Raymond M.D. on 10/25/2021 at 22:03?? CT scan - chest: Radiologist's Impression: [address] [address] [address] Scan Report Signed Patient: Yovani Edmond MR#: [id number] : 1980 Acct:[id number] Age/Sex: 41 / M Date of Service: 10/25/21 Loc: ED Accession Number: [id number] ?? Procedure: CT angio chest PE protocol Ordering Provider: Anselmo Soto D.O. PROCEDURE:? CT ANGIO CHEST PE PROTOCOL ? INDICATIONS:? Chest pain, shortness of breath, tachycardia ? TECHNIQUE:? After the administration of intravenous contrast, 2 mm thick sections acquired from the pulmonary apices to the posterior costophrenic angles.? 3-dimensional maximum intensity projection (MIP) coronal and sagittal reformats were then acquired through the thorax.? For radiation dose reduction, the following was used:? automated exposure control, adjustment of mA and/or kV according to patient size.? ? COMPARISON:? [facility], XR CHEST 1V, 10/25/2021, 21:03. ? FINDINGS:? Image quality:? Excellent.? ? Pulmonary arteries:? Pulmonary arteries are normal in size, and demonstrate no intraluminal filling defects to suggest central pulmonary embolism.? ? Lungs and pleura:? There is minimal scarring and atelectasis bilaterally..? No pleural effusions or pneumothorax.? There is a non dependent soft tissue nodule anteriorly within the trachea at the level of the thyroid.? The nodule measures approximately 0.9 x 0.7 cm in transverse dimension.? The remaining trachea and central airways appear patent. ? Mediastinum:? Heart size is normal, without pericardial effusion.? No mediastinal or hilar adenopathy.? Thoracic aorta is normal in caliber and enhancement.? Esophagus is normal in caliber, with a small hiatal hernia.? ? Bones and chest wall:? No suspicious bony lesions.? Ribs and thoracic spine a ppear intact throughout.? The visualized thyroid demonstrates no discrete nodules.? No axillary or supraclavicular adenopathy.? ? Abdomen:? Visualized upper abdomen demonstrates a slightly nodular hepatic contour suggestive of cirrhosis.? Gallbladder is surgically absent.? There are a few colonic diverticula. ? IMPRESSION:? ? 1. No acute cardiopulmonary disease. ? 2. Soft tissue nodule demonstrated anteriorly within the trachea at the level of thyroid. ?The findings are nonspecific and a neoplastic process cannot be excluded.? Consider further evaluation with direct visualization.? ? ? Dictated by: Rosalino Raymond M.D. on 10/25/2021 at 23:27 ? ? Approved by: Rosalino Raymond M.D. on 10/25/2021 at 23:33 ECG Data Attestation: I personally reviewed and interpreted this ECG as follows: Interpretation: Sinus rhythm Ventricular rate 1 Normal axis Normal QRS Artifact noted No obvious ST T wave changes MDM Narrative Medical decision making narrative: Patient tachycardic. Is obviously anxious about his symptoms. Was given Ativan which did seem to help his anxiety and did improve his heart rate somewhat but was still above 100. No ST changes on his EKG. Troponins negative x2 with 2nd being greater than 6 hours of the onset of his symptoms. D-dimer slightly elevated. CT scan of the chest shows no signs of pneumonia, pneumothorax, aortic dissection or pulmonary embolism. Patient still complaining of some chest discomfort. Was given nitroglycerin which did resolve his symptoms. Had a discussion with the patient regarding his symptoms. We did discuss his risk of ACS given his presentation and his family history. We did discuss being admitted to the hospital. Unfortunately this hospital does not provide stress testing over the weekend however the patient was offered admission to the hospital in order to have this done on Thursday. We did discuss the risks and benefits of this. We also discussed the risks and benefits of following up with his primary doctor. After this discussion the patient opted to be discharged home and will follow-up with his primary doctor. An e-mail was sent by myself his primary doctor to inform him of this. Was sent home with a prescription for nitroglycerin. Patient was given strict return precautions. No indication for antibiotics. We also discussed the incidental finding of a nodule in his trachea. I feel this is unrelated to his presenting symptoms today. He was informed that he does need follow-up for this and most likely can start with ear nose and throat but potentially will need follow-up with pulmonology. He was given strict return precautions. He expressed understanding and agreement. Discharge Plan Departure Patient Disposition: Home Clinical Impression: Chest pain, Tachycardia, Tracheal nodule Instructions: DI for Chest Pain Activity Restrictions/Additional Instructions: It is important that you follow-up with your primary doctor to obtain a stress test. Give his office a call on Thursday. A prescription for nitroglycerin was sent to [facility]. If your symptoms return please take the nitroglycerin as directed and return to the emergency department for further evaluation. Prescriptions: New nitroglycerin 0.4 mg tablet, sublingual 0.4 mg sublingual Q5M PRN (Reason: chest pain) Qty: 90 0RF Rx Instructions: do not exceed 3 doses per episode No Action oxycodone 5 mg tablet 5 mg PO TID PRN (Reason: pain) Qty: 75 0RF bupropion HCl 450 mg tablet extended release 24 hr 450 mg PO DAILY Qty: 90 0RF Rx Instructions: swallow whole with glass of water; do not crush/chew /dissolve /cut/break meloxicam 15 mg tablet 15 mg PO QDAY Qty: 90 0RF Hold Instructions: While on Dexamethasone prazosin 2 mg capsule See Rx Instructions PO QPM MDD 8 mg Qty: 200 4RF Rx Instructions: 1-4 caps PO every evening; trazodone 100 mg tablet 100 mg PO BEDTIME Qty: 90 0RF Referrals: Luke Garcia MD [Primary Care Provider] - Stand Alone Forms: Work Release Note Visit Report Forms: Patient Portal/API
[2021-10-25] MEDS: LORazepam 2 MG/ML INJ 1 MG IV (21:36)
[2021-10-25 21:38] LABS: Add Manual Diff / Slide Review NO; Basophils Absolute Auto 100 /uL (0-100); Basophils Percent Auto 0.9 % (0-2); Eosinophils Absolute Auto 100 /uL (0-450); Eosinophils Percent Auto 1.4 % (2-4); Hematocrit 42.8 % (41-53); Lymphocytes Absolute Auto 500 /uL (1100-4500); Lymphocytes Percent Auto 6.3 % (25-40); Mean Corpuscular HGB Conc 35.1 % (30-36); Mean Corpuscular Hemoglobin 29.9 PG (26-34); Monocytes Absolute Auto 900 /uL (0-900); Monocytes Percent Auto 12.5 % (3-14); Neutrophils Absolute Auto 5700 /uL (1500-7000); Neutrophils Percent Auto 78.9 % (50-75); Platelet Count 282 X10^3/uL (150-400); Red Blood Cell Count 5.03 X10^6/uL (4.5-5.9); Red Cell Distribution Width 14.4 % (11.6-14.8); White Blood Cell Count 7.2 X10^3/uL (4.5-11.0)
[2021-10-25 21:45] LABS: D Dimer 280 ng/mL (<230)
[2021-10-25 21:48] LABS: Alanine Aminotransferase 28 IU/L (<50); Albumin 4.5 g/dL (3.5-5.0); Albumin Globulin Ratio 1.3 (1.0-2.8); Alkaline Phosphatase 80 U/L (38-126); Aspartate Aminotransferase 26 IU/L (17-59); Bilirubin Total 0.6 mg/dL (0.2-1.3); Blood Urea Nitrogen 10 mg/dL (9-20); Carbon Dioxide 27 mmol/L (22-32); Chloride 99 mmol/L (98-107); Creatine Kinase 75 U/L (55-170); Estimated Glomerular Filt Rate > 60 mL/min (>60); Globulin 3.4 g/dL (1.7-4.1); Glucose 100 mg/dL (70-100); HEMOLYSIS < 15 (0-50); Lipase 59 U/L (23-300); Magnesium 1.9 mg/dL (1.6-2.3); Potassium 3.7 mmol/L (3.4-5.1); Sodium 135 mmol/L (137-145); Total Protein 7.9 g/dL (6.3-8.2)
[2021-10-25 21:59] LABS: Troponin I < 0.012 ng/mL (0.01-0.034)
--- NOTE | 2021-10-25 22:10 | DI.CT.S_ITS ---
PROCEDURE: CT ANGIO CHEST PE PROTOCOL INDICATIONS: Chest pain, shortness of breath, tachycardia TECHNIQUE: After the administration of intravenous contrast, 2 mm thick sections acquired from the pulmonary apices to the posterior costophrenic angles. 3-dimensional maximum intensity projection (MIP) coronal and sagittal reformats were then acquired through the thorax. For radiation dose reduction, the following was used: automated exposure control, adjustment of mA and/or kV according to patient size. COMPARISON: [facility], CR, XR CHEST 1V, 10/25/2021, 21:03. FINDINGS: Image quality: Excellent. Pulmonary arteries: Pulmonary arteries are normal in size, and demonstrate no intraluminal filling defects to suggest central pulmonary embolism. Lungs and pleura: There is minimal scarring and atelectasis bilaterally.. No pleural effusions or pneumothorax. There is a non dependent soft tissue nodule anteriorly within the trachea at the level of the thyroid. The nodule measures approximately 0.9 x 0.7 cm in transverse dimension. The remaining trachea and central airways appear patent. Mediastinum: Heart size is normal, without pericardial effusion. No mediastinal or hilar adenopathy. Thoracic aorta is normal in caliber and enhancement. Esophagus is normal in caliber, with a small hiatal hernia. Bones and chest wall: No suspicious bony lesions. Ribs and thoracic spine appear intact throughout. The visualized thyroid demonstrates no discrete nodules. No axillary or supraclavicular adenopathy. Abdomen: Visualized upper abdomen demonstrates a slightly nodular hepatic contour suggestive of cirrhosis. Gallbladder is surgically absent. There are a few colonic diverticula. IMPRESSION: 1. No acute cardiopulmonary disease. 2. Soft tissue nodule demonstrated anteriorly within the trachea at the level of thyroid. The findings are nonspecific and a neoplastic process cannot be excluded. Consider further evaluation with direct visualization. Dictated by: Rosalino Raymond M.D. on 10/25/2021 at 23:27 Approved by: Rosalino Raymond M.D. on 10/25/2021 at 23:33
[2021-10-25] MEDS: SODIUM CHLORIDE 0.9% 1,000 ML 1000 ML IV (22:33)
[2021-10-25 23:43] LABS: COVID19 -Nasal RAPID Negative (Negative)
[2021-10-25] MEDS: NITROGLYCERIN 0.4 MG SL TAB SL (23:53)
[2021-10-26] VITALS (10 sets, daily range): BP systolic 140–157; BP diastolic 65–73; PULSE 108–115; RESP 16–24; TEMP 38.3; O2SAT 90–95
[2021-10-26] MEDS: NITROGLYCERIN 0.4 MG SL TAB SL ×2 (00:05→00:25)
--- NOTE | 2021-10-26 00:09 | PC.NURSE ---
Pt reports that his chest pain improved from 7/10 to 4/10 [address] Soto aware.
[2021-10-26 00:59] LABS: Creatine Kinase 61 U/L (55-170)
[2021-10-26 01:12] LABS: Troponin I < 0.012 ng/mL (0.01-0.034)
--- NOTE | 2021-10-26 02:13 | PC.NURSE ---
Pt noted with temp of 100.9 prior to discharge; Dr Soto notified. Urine checked for signs of infection; ok to NM home per Dr Soto.
== END 2021-10-26 02:15 | disposition home or self-care (01) ==
PROVIDERS: Emergency Medicine; Emergency Provider Emergency Medicine; Family Provider Family Medicine; PCP Pediatrics
DX: R07.9 Chest pain, unspecified (principal); R00.0 Tachycardia, unspecified; J39.8 Other specified diseases of upper respiratory tract; R42 Dizziness and giddiness; Z20.822 Contact with and (suspected) exposure to COVID-19
CPT/HCPCS: 36415; 71045; 71275; 80053; 82550; 83690; 83735; 84484; 85025; 85379; 87635; 93005; 93010; 96374; 99284; C9803; J2060; Q9967

== ENCOUNTER → 2021-11-25 07:43 | Outpatient (CLI) | payer OTHER, MEDICAID, SELFPAY ==
[2021-11-25 08:21] LABS: COVID19 -Nasal RAPID Negative (Negative)
== END ==
PROVIDERS: Family Provider Family Medicine; PCP Pediatrics; Referring Provider Pediatrics; Visit Provider Pediatrics
DX: R07.9 Chest pain, unspecified (principal); Z20.822 Contact with and (suspected) exposure to COVID-19
CPT/HCPCS: 87635

== ENCOUNTER 2022-11-11 23:13 | Emergency (ER) | payer MEDICAID, SELFPAY ==
[2022-11-11 23:24] VITALS: BP 165/99; PULSE 99; RESP 16; TEMP 37.2; O2SAT 95; BMI 35.4
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
[2022-11-12] MEDS: HYDROCODONE/ACET 5/325 TABLET 2 TAB PO (01:14)
[2022-11-12 02:28] VITALS: BP 144/86; PULSE 84; RESP 16; TEMP 36.6; O2SAT 97
== END 2022-11-12 02:29 | disposition home or self-care (01) ==
PROVIDERS: Emergency Provider Emergency Medicine; Family Provider Family Medicine; PCP Family Medicine
DX: T23.052A Burn of unspecified degree of left palm, initial encounter (principal); W39.XXXA Discharge of firework, initial encounter
CPT/HCPCS: 73130; 99283

== ENCOUNTER → 2022-11-18 11:42 | Outpatient (CLI) | payer MEDICAID, SELFPAY | PROVIDERS: Family Provider Family Medicine; PCP Family Medicine; Referring Provider Emergency Medicine; Visit Provider Surgery | DX: T23.202A Burn of second degree of left hand, unspecified site, initial encounter (principal) | CPT/HCPCS: 16020; 99203; 99212 ==

== ENCOUNTER → 2023-01-30 10:02 | Outpatient (CLI) | payer OTHER, MEDICAID, SELFPAY ==
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
== END ==
PROVIDERS: Family Provider Family Medicine; PCP Family Medicine; Referring Provider Family Medicine; Visit Provider Family Medicine
DX: Q74.1 Congenital malformation of knee (principal); M25.561 Pain in right knee
CPT/HCPCS: 73562